=== PATIENT | female | born 1940 | race Caucasian/White ===

== ENCOUNTER 2017-05-26 09:25 | Inpatient (IN) | payer MEDICARE, OTHER ==
[2017-05-26] VITALS (9 sets, daily range): BP systolic 146–201; BP diastolic 79–119; PULSE 74–104; RESP 17–18; TEMP 98–98.4; O2SAT 93–97
[~2017-05-26] VITALS: Ht 167.6 cm; Wt 80.5 kg
[2017-05-26] MEDS: SODIUM CHLORIDE 0.9% FLUSH 10 ML FLUSH IVF PRN (09:44)
[2017-05-26 09:55] LABS: AUTOMATED NEUTROPHIL # 13.4 TH/MM3 (1.8-7.7); BASOPHIL # 0.2 TH/MM3 (0-0.2); BASOPHIL % 1.3 % (0.0-2.0); HEMATOCRIT 39.2 % (35.0-46.0); HEMO FLAGS DIFF FINAL; LYMPHOCYTE # 0.6 TH/MM3 (1.0-4.8); MEAN CORPUSCULAR HEMOGLOBIN 29.2 PG (27.0-34.0); MEAN CORPUSCULAR HGB CONC 33.6 % (32.0-36.0); NEUT % 88.7 % (16.0-70.0); PLATELET COUNT 387 TH/MM3 (150-450); RED BLOOD COUNT 4.51 MIL/MM3 (4.00-5.30); RED CELL DISTRIBUTION WIDTH 14.7 % (11.6-17.2); WHITE BLOOD COUNT 15.1 TH/MM3 (4.0-11.0)
--- NOTE | 2017-05-26 09:59 | PD ---
HPI Chief Complaint: Altered Mental Status Time Seen by Provider: 09:35 Travel History International Travel<30 days: No Contact w/Intl Traveler<30days: No Traveled to known affect area: No History of Present Illness HPI The patient is a 76-year-old female who presents to the emergency department from an assisted living facility by EMS after the patient was found on the floor. According to EMS the patient has fallen several times per the family's report of last several days. With the family arrived at her SNF today , the patient was found on the ground. EMS noted the patient had some bruising to the knees and right upper extremity and also appear to have an expressive aphasia. Upon arrival the patient does appear to have an expressive aphasia, is a somewhat limited historian and is unable to tell me the month, year, or relations manager. She tells me that her name is Samara. Apparently the patient was found on the ground, there is no known onset of symptoms. EMS did bring a medication list with her, there appears to be no anticoagulants. PFSH Past Medical History Cardiovascular Problems: Yes (HBP ) Diabetes: Yes Past Surgical History Surgical History: Unable to Obtain Social History Tobacco Use: No Allergies-Medications (Allergen,Severity, Reaction): Coded Allergies: Sulfa (Sulfonamide Antibiotics) (Unverified Allergy, Severe, HIVES, ) ITCHING Uncoded Allergies: SULFA-ITCHING (Allergy, Unknown, 06/08/03) Reported Meds & Prescriptions Reported Meds & Active Scripts Active Reported Lorazepam 1 Mg Tab 1 Mg PO BID PRN Norvasc (Amlodipine Besylate) 5 Mg Tab 5 Mg PO DAILY Atorvastatin (Atorvastatin Calcium) 20 Mg Tab 20 Mg PO HS Triamterene-Hydrochlorothiazide 37.5-25 Mg Cap 1 Cap PO DAILY Synthroid (Levothyroxine Sodium) 100 Mcg Tab 100 Mcg PO DAILY Glimepiride 1 Mg Tab 1 Mg PO DAILY Take with breakfast or first main meal Review of Systems ROS Limitations: Clinical Condition, Poor Historian Except as stated in HPI: all other systems reviewed are Neg Neurologic: Positive: Change in Mentation, Slurred Speech Physical Exam Narrative GENERAL: Awake, alert, 76 year-old female appears her stated age and is in no acute respiratory distress. SKIN: Focused skin assessment warm/dry. HEAD: Atraumatic. Normocephalic. EYES: Pupils equal and round. Pupils are 3 mm bilateral and reactive. EOMs appear intact. ENT: No nasal bleeding or discharge. Dry mucous membranes. NECK: Trachea midline. No JVD. CARDIOVASCULAR: Regular rate and rhythm. No murmur appreciated. RESPIRATORY: No accessory muscle use. Clear to auscultation. Breath sounds equal bilaterally. GASTROINTESTINAL: Abdomen soft, non-tender, nondistended. No rebound tenderness. MUSCULOSKELETAL: Ecchymosis noted over the anterior aspect of the knees bilaterally as well as over the medial right humeral area. NEUROLOGICAL: Awake and alert. Mild dysarthria, apparent expressive aphasia, tells me her name is Samara. He is unable to repeat phrases. No drift of the left upper extremity, is unable to keep her right arm. She is able to raise her left leg and right leg off of the bed. Is not oriented to person, month, or year. PSYCHIATRIC: Appropriate mood and affect; insight and judgment normal. Data Data Last Documented VS Vital Signs Date Time Temp Pulse Resp B/P (MAP) Pulse Ox O2 Delivery O2 Flow Rate FiO2 05/26/17 10:20 96 18 146/100 (115) 96 Room Air 05/26/17 09:29 98.2 Orders Orders Electrocardiogram (05/26/17 09:35) Prothrombin Time / Inr (Pt) (05/26/17 09:35) Act Partial Throm Time (Ptt) (05/26/17 09:35) Complete Blood Count With Diff (05/26/17 09:35) Comprehensive Metabolic Panel (05/26/17 09:35) Creatine Kinase (Cpk) (05/26/17 09:35) Troponin I (05/26/17 09:35) Urinalysis - C+S If Indicated (05/26/17 09:35) Ct Brain W/O Iv Contrast(Rout) (05/26/17 09:35) Chest, Single Ap (05/26/17 09:35) Ecg Monitoring (05/26/17 09:35) Iv Access Insert/Monitor (05/26/17 09:35) Oximetry (05/26/17 09:35) Sodium Chloride 0.9% Flush (Ns Flush) (05/26/17 09:45) Cath For Specimen (05/26/17 09:35) Knee, Ltd (1 Or 2vws) (05/26/17 ) Knee, Ltd (1 Or 2vws) (05/26/17 ) Humerus (Min 2vws) (05/26/17 ) Aspirin Supp (Aspirin Supp) (05/26/17 10:45) Admit Order (Ed Use Only) (05/26/17 10:55) Labs Laboratory Tests Test 05/26/17 09:40 05/26/17 10:15 White Blood Count 15.1 TH/MM3 Red Blood Count 4.51 MIL/MM3 Hemoglobin 13.2 GM/DL Hematocrit 39.2 % Mean Corpuscular Volume 87.0 FL Mean Corpuscular Hemoglobin 29.2 PG Mean Corpuscular Hemoglobin Concent 33.6 % Red Cell Distribution Width 14.7 % Platelet Count 387 TH/MM3 Mean Platelet Volume 7.5 FL Neutrophils (%) (Auto) 88.7 % Lymphocytes (%) (Auto) 4.0 % Monocytes (%) (Auto) 6.0 % Eosinophils (%) (Auto) 0.0 % Basophils (%) (Auto) 1.3 % Neutrophils # (Auto) 13.4 TH/MM3 Lymphocytes # (Auto) 0.6 TH/MM3 Monocytes # (Auto) 0.9 TH/MM3 Eosinophils # (Auto) 0.0 TH/MM3 Basophils # (Auto) 0.2 TH/MM3 CBC Comment DIFF FINAL Differential Comment Prothrombin Time 11.0 SEC Prothromb Time International Ratio 1.0 RATIO Activated Partial Thromboplast Time 25.0 SEC Blood Urea Nitrogen 11 MG/DL Creatinine 0.78 MG/DL Random Glucose 187 MG/DL Total Protein 7.7 GM/DL Albumin 3.7 GM/DL Calcium Level 8.9 MG/DL Alkaline Phosphatase 77 U/L Aspartate Amino Transf (AST/SGOT) 66 U/L Alanine Aminotransferase (ALT/SGPT) 49 U/L Total Bilirubin 0.9 MG/DL Sodium Level 131 MEQ/L Potassium Level 3.6 MEQ/L Chloride Level 91 MEQ/L Carbon Dioxide Level 26.9 MEQ/L Anion Gap 13 MEQ/L Estimat Glomerular Filtration Rate 72 ML/MIN Troponin I 0.03 NG/ML Urine Color YELLOW Urine Turbidity CLEAR Urine pH 7.0 Urine Specific [place] 1.013 Urine Protein 300 mg/dL Urine Glucose (UA) TRACE mg/dL Urine Ketones 80 mg/dL Urine Occult Blood MOD Urine Nitrite NEG Urine Bilirubin NEG Urine Urobilinogen LESS THAN 2.0 MG/DL Urine Leukocyte Esterase NEG Urine RBC 7 /hpf Urine WBC 3 /hpf Urine Squamous Epithelial Cells <1 /hpf Microscopic Urinalysis Comment CATH-CULT NOT IND MDM Medical Decision Making Medical Screen Exam Complete: Yes Emergency Medical Condition: Yes Medical Record Reviewed: Yes Interpretation(s) EKG reveals normal sinus rhythm with a rate in 94. Nonspecific T wave changes. Q wave noted in lead 3 and aVF. Laboratory Tests Test 05/26/17 09:40 05/26/17 10:15 White Blood Count 15.1 TH/MM3 Red Blood Count 4.51 MIL/MM3 Hemoglobin 13.2 GM/DL Hematocrit 39.2 % Mean Corpuscular Volume 87.0 FL Mean Corpuscular Hemoglobin 29.2 PG Mean Corpuscular Hemoglobin Concent 33.6 % Red Cell Distribution Width 14.7 % Platelet Count 387 TH/MM3 Mean Platelet Volume 7.5 FL Neutrophils (%) (Auto) 88.7 % Lymphocytes (%) (Auto) 4.0 % Monocytes (%) (Auto) 6.0 % Eosinophils (%) (Auto) 0.0 % Basophils (%) (Auto) 1.3 % Neutrophils # (Auto) 13.4 TH/MM3 Lymphocytes # (Auto) 0.6 TH/MM3 Monocytes # (Auto) 0.9 TH/MM3 Eosinophils # (Auto) 0.0 TH/MM3 Basophils # (Auto) 0.2 TH/MM3 CBC Comment DIFF FINAL Differential Comment Prothrombin Time 11.0 SEC Prothromb Time International Ratio 1.0 RATIO Activated Partial Thromboplast Time 25.0 SEC Blood Urea Nitrogen 11 MG/DL Creatinine 0.78 MG/DL Random Glucose 187 MG/DL Total Protein 7.7 GM/DL Albumin 3.7 GM/DL Calcium Level 8.9 MG/DL Alkaline Phosphatase 77 U/L Aspartate Amino Transf (AST/SGOT) 66 U/L Alanine Aminotransferase (ALT/SGPT) 49 U/L Total Bilirubin 0.9 MG/DL Sodium Level 131 MEQ/L Potassium Level 3.6 MEQ/L Chloride Level 91 MEQ/L Carbon Dioxide Level 26.9 MEQ/L Anion Gap 13 MEQ/L Estimat Glomerular Filtration Rate 72 ML/MIN Troponin I 0.03 NG/ML Urine Color YELLOW Urine Turbidity CLEAR Urine pH 7.0 Urine Specific [place] 1.013 Urine Protein 300 mg/dL Urine Glucose (UA) TRACE mg/dL Urine Ketones 80 mg/dL Urine Occult Blood MOD Urine Nitrite NEG Urine Bilirubin NEG Urine Urobilinogen LESS THAN 2.0 MG/DL Urine Leukocyte Esterase NEG Urine RBC 7 /hpf Urine WBC 3 /hpf Urine Squamous Epithelial Cells <1 /hpf Microscopic Urinalysis Comment CATH-CULT NOT IND Last Impressions Head CT 05/26/1735 Signed Impressions: Service Date/Time: Friday, May 26, 2017 10:04 - CONCLUSION: No acute disease. Hermelinda Edwards MD Chest X-Ray 05/26/17 0935 Signed Impressions: Service Date/Time: Friday, May 26, 2017 09:51 - CONCLUSION: Significant hypoinflation of the lungs. The enlargement of cardiac silhouette and prominence of the pulmonary vasculature may be secondary to portable technique versus congestive heart failure and pulmonary edema. Recommend upright PA and lateral views when clinically able. Hermelinda Edwards MD Knee X-Ray 05/26/17 0000 Signed Impressions: Service Date/Time: Friday, May 26, 2017 09:56 - CONCLUSION: Focal soft tissue overlying the patella which may represent an area of focal or situs or hematoma. Hermelinda Edwards MD Knee X-Ray 05/26/17 0000 Signed Impressions: Service Date/Time: Friday, May 26, 2017 09:55 - CONCLUSION: Degenerative changes along the patella. Otherwise the exam.. Hermelinda Edwards MD Humerus X-Ray 05/26/17 0000 Signed Impressions: Service Date/Time: Friday, May 26, 2017 09:52 - CONCLUSION: Unremarkable examination of the right humerus. Hermelinda Edwards MD Differential Diagnosis Differential diagnosis includes CVA, intracranial hemorrhage, subarachnoid hemorrhage, delirium, UTI, pneumonia, hyponatremia, closed head injury. Narrative Course IV was established, labs were drawn and sent, and the patient was placed on cardiac telemetry monitoring and continuous pulse oximetry monitoring. Stat CT of the brain was obtained. EKG was ordered and interpreted. Chest x-ray was obtained. CT of the brain is unremarkable. X-rays reveal no acute fractures. I had a discussion with family at bedside who state that the patient's speech was normal yesterday, the patient was last seen normal at 4 PM. Therefore, the patient is not a TPA candidate. They do notice that the patient's speech is significantly different today, the patient appears to have expressive aphasia and new onset weakness of the right upper extremity consistent with a CVA, most likely the left temporal parietal region. As CT was negative, the patient was administered aspirin rectally until she is able to have a speech evaluation and swallow study. They state that the patient's primary physician is Dr. Brett Morgan and that the patient has [facility], therefore, [facility] was paged for admission. Physician Communication Physician Communication [facility] was paged for admission. I discussed the patient Dr. Wilkins who agrees with admission. Diagnosis Primary Impression: CVA (cerebral vascular accident) Qualified Codes: I63.9 - Cerebral infarction, unspecified Additional Impression: Expressive dysphasia Admitting Information Admitting Physician Requests: Admit Condition: Stable Wero Payne MD May 26, 2017 09:59
--- NOTE | 2017-05-26 10:21 | RADRPT ---
EXAM DATE/TIME: 05/26/2017 09:51 [facility] COMPARISON: No previous studies available for comparison. INDICATIONS : Pain from fall. MEDICAL HISTORY : None. SURGICAL HISTORY : None. ENCOUNTER: Initial ACUITY: 1 day PAIN SCORE: 10 LOCATION: Bilateral chest FINDINGS: The lungs appear moderately hyperinflated. The heart size is mildly enlarged which may be secondary t o portable technique and hypoinflation. There is indistinctness of the pulmonary vasculature. Osseous structures are unremarkable. CONCLUSION: Significant hypoinflation of the lungs. The enlargement of cardiac silhouette and pro minence of the pulmonary vasculature may be secondary to portable technique versus congestive heart f ailure and pulmonary edema. Recommend upright PA and lateral views when clinically able. Hermelinda Edwards MD on May 26, 2017 at 10:18 Board Certified Radiologist. This report was verified electronically.
--- NOTE | 2017-05-26 10:22 | RADRPT ---
EXAM DATE/TIME: 05/26/2017 10:04 [facility] COMPARISON: No previous studies available for comparison. INDICATIONS : Altered mental status, multiple falls. RADIATION DOSE: 37.27 CTDIvol (mGy) ; Patient motion MEDICAL HISTORY : Hypertension. diabetes SURGICAL HISTORY : None. ENCOUNTER: Initial ACUITY: 1 day PAIN SCALE: 0/10 LOCATION: Bilateral head TECHNIQUE: Multiple contiguous axial images were obtained of the head. Using automated exposure control and adj ustment of the mA and/or kV according to patient size, radiation dose was kept as low as reasonably a chievable to obtain optimal diagnostic quality images. DICOM format image data is available electro nically for review and comparison. FINDINGS: CEREBRUM: The ventricles are normal for age. No evidence of midline shift, mass lesion, hemorrhage or acute in farction. There is a focal 6 mm well-circumscribed hypodensity involving the white matter of the rig ht frontal lobe which may represent an old lacunar infarct versus prominent perivascular space. No ex tra-axial fluid collections are seen. POSTERIOR FOSSA: The cerebellum and brainstem are intact. The 4th ventricle is midline. The cerebellopontine angle i s unremarkable. EXTRACRANIAL: The visualized portion of the orbits is intact. SKULL: The calvaria is intact. No evidence of skull fracture. CONCLUSION: No acute disease. Hermelinda Edwards MD on May 26, 2017 at 10:20 Board Certified Radiologist. This report was verified electronically.
--- NOTE | 2017-05-26 10:23 | RADRPT ---
EXAM DATE/TIME: 05/26/2017 09:52 [facility] COMPARISON: No previous studies available for comparison. INDICATIONS : Pain from fall. MEDICAL HISTORY : None. SURGICAL HISTORY : None. ENCOUNTER: Initial ACUITY: 1 day PAIN SCORE: 1/10 LOCATION: Right humerus. FINDINGS: Two view examination of the right humerus demonstrates no evidence of fracture or dislocation. Bony mineralization is normal. The soft tissue structures are intact. CONCLUSION: Unremarkable examination of the right humerus. Hermelinda Edwards MD on May 26, 2017 at 10:21 Board Certified Radiologist. This report was verified electronically.
--- NOTE | 2017-05-26 10:24 | RADRPT ---
EXAM DATE/TIME: 05/26/2017 09:55 [facility] COMPARISON: No previous studies available for comparison. INDICATIONS : Pain from fall. MEDICAL HISTORY : None. SURGICAL HISTORY : None. ENCOUNTER: Initial ACUITY: 1 day PAIN SCORE: 10 LOCATION: Right knee. FINDINGS: Two view examination of the right knee demonstrates no evidence of fracture or dislocation. Patellar enthesophytes are noted. Bony mineralization is normal. The suprapatellar soft tissues have a normal configuration. CONCLUSION: Degenerative changes along the patella. Otherwise the exam.. Hermelinda Edwards MD on May 26, 2017 at 10:21 Board Certified Radiologist. This report was verified electronically.
--- NOTE | 2017-05-26 10:24 | RADRPT ---
EXAM DATE/TIME: 05/26/2017 09:56 [facility] COMPARISON: No previous studies available for comparison. INDICATIONS : Pain from fall. MEDICAL HISTORY : None. SURGICAL HISTORY : None. ENCOUNTER: Initial ACUITY: 1 day PAIN SCORE: 10 LOCATION: Left knee. FINDINGS: Two view examination of the left knee demonstrates no evidence of fracture or dislocation. Patellar enthesophytes. Focal soft tissue edema overlying the patella. Bony mineralization is normal. The sup rapatellar soft tissues have a normal configuration. CONCLUSION: Focal soft tissue overlying the patella which may represent an area of focal or situs or hematoma. Hermelinda Edwards MD on May 26, 2017 at 10:22 Board Certified Radiologist. This report was verified electronically.
[2017-05-26] MEDS ORDERED: LORA1TAB12 PO (10:39)
[2017-05-26] MEDS ORDERED: ATOR20TA15 PO (10:39)
[2017-05-26] MEDS ORDERED: AMLO5 PO (10:39)
[2017-05-26] MEDS ORDERED: TRIA37.53 PO (10:39)
[2017-05-26] MEDS ORDERED: GLIM1TAB PO (10:39)
[2017-05-26] MEDS ORDERED: LEVO.1 PO (10:39)
[2017-05-26 10:43] LABS: ANION GAP 13 MEQ/L (5-15); AST (GOT) 66 U/L (15-37); BICARBONATE 26.9 MEQ/L (21.0-32.0); BLOOD UREA NITROGEN 11 MG/DL (7-18); CHLORIDE 91 MEQ/L (98-107); GLOMERULAR FILTRATION RATE 72 ML/MIN (>89); SODIUM (NA) 131 MEQ/L (136-145)
[2017-05-26 10:44] LABS: POTASSIUM 3.6 MEQ/L (3.5-5.1)
[2017-05-26] MEDS ORDERED: ASPIRIN 300 MG SUPP RECTAL ONE (10:45)
[2017-05-26 10:46] LABS: BLOOD, URINE MOD (NEG); COMMENT (UR) CATH-CULT NOT IND; CULTURE IF INDICATED CATH CULTURE NOT IND; GLUCOSE,URINE TRACE mg/dL (NEG); KETONE, URINE 80 mg/dL (NEG); NITRITE,URINE NEG (NEG); SQUAMOUS EPITHELIAL CELL URINE <1 /hpf (0-5); URINE COLOR YELLOW (YELLW/STRAW)
[2017-05-26 10:48] LABS: ALKALINE PHOSPHATASE 77 U/L (45-117); ALT (GPT) 49 U/L (10-53); TOTAL BILIRUBIN ADULT 0.9 MG/DL (0.2-1.0)
[2017-05-26 10:59] LABS: CREATINE KINASE 2350 U/L (26-192)
[2017-05-26 11:14] LABS: CKMB 16.8 NG/ML (0.5-3.6)
[2017-05-26] MEDS: SODIUM CHLOR 0.9% 1000 ML INJ 1,000 ML IV SCH (13:35)
--- NOTE | 2017-05-26 15:36 | HHI.HP ---
HPI Service [facility] Hospitalists Primary Care Physician Brett Morgan M.D. Admission Diagnosis CVA with expressive dysarthria, multiple hematomas Chief Complaint: found down Travel History International Travel<30 Days: No Contact w/Intl Traveler <30 Da: No Traveled to Known Affected Are: No History of Present Illness Pt is 76 yo with dm 2, htn, hyperlipidemia who presents after being found down. Her daughter and grand daughter are here to help with history. Pt lives in [place] and is described to be very funtional. no assistive devices. She drives a car and is able to ambulate normally to grocery store. last weekend she fell and was seen by her pcp and had xray on her leg and arm by pcp per family. Then2 days ago she had another fall and daughter spent the night. But last night family called around 10pm and no answer. When they arrived this AM she was found lying on the floor. The helped her to a chair and when she arrived her pt had expressive aphasia and rue weakness. CT head negative. No tpa candidate. No afib hx per family. Review of Systems Other multiple falls recently expressive aphasia. Past Family Social History Past Medical History htn dm 2 hypothyroidism hernia repair hysterectomy cholecystectomy Reported Medications Lorazepam 1 Mg Tab 1 Mg PO BID PRN Norvasc (Amlodipine Besylate) 5 Mg Tab 5 Mg PO DAILY Atorvastatin (Atorvastatin Calcium) 20 Mg Tab 20 Mg PO HS Triamterene-Hydrochlorothiazide 37.5-25 Mg Cap 1 Cap PO DAILY Synthroid (Levothyroxine Sodium) 100 Mcg Tab 100 Mcg PO DAILY Glimepiride 1 Mg Tab 1 Mg bid Allergies: Coded Allergies: Sulfa (Sulfonamide Antibiotics) (Unverified Allergy, Severe, HIVES, ) ITCHING Uncoded Allergies: SULFA-ITCHING (Allergy, Unknown, 06/08/03) Family History nc Social History no etoh/tob Physical Exam Vital Signs expressive aphasia rue weakness. unable to lift arm above head heart reg lung cta abd snt ext no edema bruising over upper ext's and knee Vital Signs Date Time Temp Pulse Resp B/P (MAP) Pulse Ox O2 Delivery O2 Flow Rate FiO2 05/26/17 13:45 98.0 89 16 161/81 (107) 97 05/26/17 11:56 98.1 94 17 172/79 (110) 97 Room Air 05/26/17 10:20 96 18 146/100 (115) 96 Room Air 05/26/17 09:44 18 95 Room Air 05/26/17 09:30 104 18 95 Room Air 05/26/17 09:29 98.2 104 18 201/119 (146) 95 Laboratory Laboratory Tests Test 05/26/17 09:40 05/26/17 10:15 White Blood Count 15.1 Red Blood Count 4.51 Hemoglobin 13.2 Hematocrit 39.2 Mean Corpuscular Volume 87.0 Mean Corpuscular Hemoglobin 29.2 Mean Corpuscular Hemoglobin Concent 33.6 Red Cell Distribution Width 14.7 Platelet Count 387 Mean Platelet Volume 7.5 Neutrophils (%) (Auto) 88.7 Lymphocytes (%) (Auto) 4.0 Monocytes (%) (Auto) 6.0 Eosinophils (%) (Auto) 0.0 Basophils (%) (Auto) 1.3 Neutrophils # (Auto) 13.4 Lymphocytes # (Auto) 0.6 Monocytes # (Auto) 0.9 Eosinophils # (Auto) 0.0 Basophils # (Auto) 0.2 CBC Comment DIFF FINAL Differential Comment Prothrombin Time 11.0 Prothromb Time International Ratio 1.0 Activated Partial Thromboplast Time 25.0 Blood Urea Nitrogen 11 Creatinine 0.78 Random Glucose 187 Total Protein 7.7 Albumin 3.7 Calcium Level 8.9 Alkaline Phosphatase 77 Aspartate Amino Transf (AST/SGOT) 66 Alanine Aminotransferase (ALT/SGPT) 49 Total Bilirubin 0.9 Sodium Level 131 Potassium Level 3.6 Chloride Level 91 Carbon Dioxide Level 26.9 Anion Gap 13 Estimat Glomerular Filtration Rate 72 Total Creatine Kinase 2350 Creatine Kinase MB 16.8 Creatine Kinase MB % 0.7 Troponin I 0.03 Urine Color YELLOW Urine Turbidity CLEAR Urine pH 7.0 Urine Specific [place] 1.013 Urine Protein 300 Urine Glucose (UA) TRACE Urine Ketones 80 Urine Occult Blood MOD Urine Nitrite NEG Urine Bilirubin NEG Urine Urobilinogen LESS THAN 2.0 Urine Leukocyte Esterase NEG Urine RBC 7 Urine WBC 3 Urine Squamous Epithelial Cells <1 Microscopic Urinalysis Comment CATH-CULT NOT IND Result Diagram: 05/26/1740 05/26/1740 Caprini VTE Risk Assessment Caprini VTE Risk Assessment: Mod/High Risk (score >= 2) Caprini Risk Assessment Model Point Value = 1 Point Value = 2 Point Value = 3 Point Value = 5 Age 41-60 Minor surgery BMI > 25 kg/m2 Swollen legs Varicose veins or History of unexplained or recurrent spontaneous Oral contraceptives or hormone replacement Sepsis (< 1 month) Serious lung disease, including pneumonia (< 1 month) Abnormal pulmonary function Acute myocardial infarction Congestive heart failure (< 1 month) History of inflammatory bowel disease Medical patient at bed rest Age 61-74 Arthroscopic surgery Major open surgery (> 45 min) Laparoscopic surgery (> 45 min) Malignancy Confined to bed (> 72 hours) Immobilizing plaster cast Central venous access Age >= 75 History of VTE Family history of VTE Factor V Leiden Prothrombin [id number] Lupus anticoagulant Anticardiolipin antibodies Elevated serum homocysteine Heparin-induced thrombocytopenia Other congenital or acquired thrombophilia Stroke (< 1 month) Elective arthroplasty Hip, pelvis, or leg fracture Acute spinal cord injury (< 1 month) Prophylaxis Regimen Total Risk Factor Score Risk Level Prophylaxis Regimen 0-1 Low Early ambulation 2 Moderate Order ONE of the following: *Sequential Compression Device (SCD) *Heparin 5000 units SQ BID 3-4 Higher Order ONE of the following medications: *Heparin 5000 units SQ TID *Enoxaparin/Lovenox 40 mg SQ daily (WT < 150 kg, CrCl > 30 mL/min) *Enoxaparin/Lovenox 30 mg SQ daily (WT < 150 kg, CrCl > 10-29 mL/min) *Enoxaparin/Lovenox 30 mg SQ BID (WT < 150 kg, CrCl > 30 mL/min) AND/OR *Sequential Compression Device (SCD) 5 or more Highest Order ONE of the following medications: *Heparin 5000 units SQ TID (Preferred with Epidurals) *Enoxaparin/Lovenox 40 mg SQ daily (WT < 150 kg, CrCl > 30 mL/min) *Enoxaparin/Lovenox 30 mg SQ daily (WT < 150 kg, CrCl > 10-29 mL/min) *Enoxaparin/Lovenox 30 mg SQ BID (WT < 150 kg, CrCl > 30 mL/min) AND *Sequential Compression Device (SCD) Assessment and Plan Problem List: (1) CVA (cerebral vascular accident) ICD Codes: I63.9 - Cerebral infarction, unspecified Status: Acute Plan: Pt is 76 yo with dm2 and htn presents with expressive aphasia/rue weakness acute cva. probably left mca. rhabdomyolysis from falls/lying on floor mild hyponatremia mild dehydration. multiple contusions of arms/legs telemetry/echo to eval for embolic source FLP and [id number] bmp in AM hob flat permissive htn asa daily mri/mra brain., carotid u/s NS ivf PT/OT/ST consult pt was not a tpa candidate. hold bp meds and oha tonight. reassess tomorro ssi. swallow eval. per nursing passed bedside swallow (2) Rhabdomyolysis ICD Codes: M62.82 - Rhabdomyolysis Status: Acute (3) Hyponatremia ICD Codes: E87.1 - Hypo-osmolality and hyponatremia Status: Acute (4) Hypothyroid ICD Codes: E03.9 - Hypothyroidism, unspecified Status: Chronic (5) HTN (hypertension) ICD Codes: I10 - Essential (primary) hypertension Status: Chronic (6) DM type 2 (diabetes mellitus, type 2) ICD Codes: E11.9 - Type 2 diabetes mellitus without complications Status: Chronic Physician Certification 2 Midnight Certification Type: Admission for Inpatient Services Order for Inpatient Services 3The services are ordered in accordance with Medicare regulations or non- Medicare payer requirements, as applicable. In the case of services not specified as inpatient-only, they are appropriately provided as inpatient services in accordance with the 2-midnight benchmark. Estimated LOS (days): 3 3 days is the estimated time the patient will need to remain in the hospital, assuming treatment plan goals are met and no additional complications. Post-Hospital Plan: Not yet determined Problem Qualifiers (1) CVA (cerebral vascular accident): Qualified Codes: I63.9 - Cerebral infarction, unspecified Claus Wilkins MD May 26, 2017 15:36
[2017-05-26] MEDS ORDERED: ENALAPRILAT 1.25 MG/ML VIAL IV PUSH PRN (15:45)
[2017-05-26] MEDS: INSULIN ASPART SUPPLEMENTAL SCALE SQ SCH ×2 (15:58→21:00)
[2017-05-26] MEDS ORDERED: DEXTROSE 50% IN WATER 50 ML VIAL(D50) IV PUSH PRN (16:00)
[2017-05-26] MEDS ORDERED: GLUCAGON 1 MG/ML VIAL OTHER PRN (16:00)
--- NOTE | 2017-05-26 18:24 | RADRPT ---
EXAM DATE/TIME: 05/26/2017 17:43 [facility] COMPARISON: No previous studies available for comparison. INDICATIONS : Cerebrovascular accident. MEDICAL HISTORY : Hypertension. Arthritis. Diabetes. SURGICAL HISTORY : Cholecystectomy. Hysterectomy. Hernia removal. ENCOUNTER: Initial ACUITY: 1 day PAIN SCORE: 0/10 LOCATION: Bilateral neck PEAK SYSTOLIC VELOCITIES (cm/sec): ICA/CCA RATIO: Right: 1.7 Left: 1.5 ICA: Right: 119.1 Left: 136.9 CCA: Right: 68.3 Left: 89.8 ECA: Right: 104.9 Left: 77.9 VERTEBRAL: Right: 35.4 antegrade Left: 51.6 antegrade Elevated flow velocities and ICA/CCA ratios have been found to correlate with increased degrees of vessel stenosis, calculated as percentage of diameter relative to a normal segment of distal ICA/CCA FINDINGS: RIGHT CAROTID: No significant stenosis is visualized. The waveforms are within normal limits. Minimal atherosclerot ic plaque is noted. LEFT CAROTID: No significant stenosis is visualized. The waveforms are within normal limits. Minimal atherosclerot ic plaque is noted VERTEBRAL ARTERIES: Antegrade flow is seen in both vertebral arteries. MISCELLANEOUS: None. CONCLUSION: No hemodynamically significant stenosis. Kevin Jay MD on May 26, 2017 at 18:18 Board Certified Radiologist. This report was verified electronically.
--- NOTE | 2017-05-26 19:44 | RADRPT ---
EXAM DATE/TIME: 05/26/2017 19:02 [facility] COMPARISON: No previous studies available for comparison. INDICATIONS : Confusion. MEDICAL HISTORY : Hypertension. Diabetes mellitus type 2. SURGICAL HISTORY : Umbilical hernia repair. Cholecystectomy. Hysterectomy. ENCOUNTER: Initial ACUITY: 1 day PAIN SCORE: 0/10 LOCATION: cranial TECHNIQUE: Multiplanar, multisequence MRI of the brain was performed without contrast. FINDINGS: CEREBRUM: The ventricles are normal for age. No evidence of midline shift, mass lesion, hemorrhage or acute in farction. No extraaxial fluid collections are seen. The pituitary gland and suprasellar cistern are normal in configuration. WHITE MATTER: Mild periventricular white matter small vessel ischemic changes are noted. POSTERIOR FOSSA: The cerebellum and brainstem are intact. The 4th ventricle is midline. The cerebellopontine angle is unremarkable. The cerebellar tonsils are normal in position. DIFFUSION IMAGING: No focal areas of restricted diffusion are seen. No evidence of acute infarction. EXTRACRANIAL: The visualized portions of the orbits and paranasal sinuses are unremarkable. CONCLUSION: 1. Mild periventricular white matter small vessel ischemic changes bilaterally. 2. No acute infarct, acute hemorrhage, mass effect, or extra-axial fluid collection. Kevin Jay MD on May 26, 2017 at 19:40 Board Certified Radiologist. This report was verified electronically.
--- NOTE | 2017-05-26 20:15 | RADRPT ---
EXAM DATE/TIME: 05/26/2017 19:02 [facility] COMPARISON: MRI BRAIN W/O CONTRAST, May 26, 2017, 19:02. CT BRAIN W/O CONTRAST, May 26, 2017, 10:04. INDICATIONS : Confusion. MEDICAL HISTORY : Hypertension. Diabetes mellitus type 2. SURGICAL HISTORY : Umbilical hernia repair. Cholecystectomy. Hysterectomy. ENCOUNTER: Initial ACUITY: 1 day PAIN SCORE: 0/10 LOCATION: Cranial Please note a normal MRA of the brain does not entirely exclude the possibility of a small aneurysm, nor the possibility of distal intracranial vessel disease. TECHNIQUE: 3D time of flight MRA was performed. Source images, multiplanar STS MIP, and 3D volume MIP reconstru ctions were reviewed. FINDINGS: The examination is markedly limited due to patient motion during scanning. There is poor filling of the distal branches of the right middle cerebral artery which raises the possibility of severe stenos is of the right middle cerebral artery. No definite acute infarct is identified on the accompanying MRI done the same day. The left middle cerebral artery is patent. The anterior cerebral arteries ar e patent bilaterally. The upper cervical, petrous, cavernous and supraclinoid internal carotid arter ies are patent without significant stenosis or occlusion. The basilar artery is patent without signi ficant stenosis or occlusion. There is poor visualization of the posterior cerebral arteries althoug h they do appear to be patent. There appears to be a patent left posterior communicating artery fill ing the left posterior cerebral artery. CONCLUSION: 1. Limited examination due to patient motion. 2. Poor visualization of the distal branches of the right middle cerebral artery raising the possibil ity of severe stenosis of this vessel although no acute infarct is identified on the accompanying MRI of the brain done the same day. Clinical correlation is recommended. Kevin Jay MD on May 26, 2017 at 19:42 Board Certified Radiologist. This report was verified electronically.
[2017-05-26] MEDS: ATORVASTATIN 40 MG TAB PO SCH (21:38)
[2017-05-26] MEDS: LORazepam 1 MG TAB PO PRN (21:38)
[2017-05-27] VITALS (7 sets, daily range): BP systolic 177–209; BP diastolic 80–100; PULSE 68–91; RESP 18–20; TEMP 97.3–98.5; O2SAT 94–96
[2017-05-27] MEDS: SODIUM CHLOR 0.9% 1000 ML INJ 1,000 ML IV SCH ×2 (03:45→16:51)
[2017-05-27] MEDS: LEVOTHYROXINE SODIUM 100 MCG TAB PO SCH (05:48)
[2017-05-27] MEDS: INSULIN ASPART SUPPLEMENTAL SCALE SQ SCH ×4 (06:39→21:00)
[2017-05-27 07:30] LABS: AUTOMATED NEUTROPHIL # 7.4 TH/MM3 (1.8-7.7); BASOPHIL # 0.1 TH/MM3 (0-0.2); BASOPHIL % 0.6 % (0.0-2.0); EOSINOPHIL % 0.3 % (0.0-4.0); HEMATOCRIT 36.8 % (35.0-46.0); HEMO FLAGS DIFF FINAL; LYMPHOCYTE # 1.2 TH/MM3 (1.0-4.8); MEAN CELL VOLUME 87.3 FL (80.0-100.0); MEAN CORPUSCULAR HEMOGLOBIN 29.8 PG (27.0-34.0); MEAN CORPUSCULAR HGB CONC 34.2 % (32.0-36.0); MONO % 8.2 % (0.0-8.0); NEUT % 77.9 % (16.0-70.0); PLATELET COUNT 308 TH/MM3 (150-450); RED BLOOD COUNT 4.21 MIL/MM3 (4.00-5.30); RED CELL DISTRIBUTION WIDTH 14.8 % (11.6-17.2); WHITE BLOOD COUNT 9.5 TH/MM3 (4.0-11.0)
[2017-05-27 08:35] LABS: ANION GAP 11 MEQ/L (5-15); BICARBONATE 25.6 MEQ/L (21.0-32.0); BLOOD UREA NITROGEN 8 MG/DL (7-18); CHLORIDE 97 MEQ/L (98-107); CREATINE KINASE 2754 U/L (26-192); GLOMERULAR FILTRATION RATE 117 ML/MIN (>89); HDL CHOLESTEROL 42.1 MG/DL (40.0-60.0); LDL CHOLESTEROL 72 MG/DL (0-99); SODIUM (NA) 134 MEQ/L (136-145)
[2017-05-27 08:37] LABS: CKMB 10.2 NG/ML (0.5-3.6)
[2017-05-27 08:39] LABS: POTASSIUM 2.8 MEQ/L (3.5-5.1)
[2017-05-27] MEDS: ASPIRIN 81 MG CHEW TAB CHEW SCH (09:18)
[2017-05-27] MEDS: SODIUM CHLORIDE 0.9% FLUSH 10 ML FLUSH IVF PRN (09:19)
[2017-05-27] MEDS ORDERED: ACETAMINOPHEN/HYDROcodone 325 MG/5 MG TAB PO PRN (12:30)
[2017-05-27] MEDS: POTASSIUM CHLORIDE 20 MEQ CONTROLLED RELEASE TAB PO SCH ×2 (13:54→17:00)
--- NOTE | 2017-05-27 14:27 | EKG ---
Date Performed: 05/26/2017 Time Performed: 10:18:57 PTAGE: 76 years EKG: Sinus rhythm POSSIBLE LEFT ATRIAL ENLARGEMENT BORDERLINE LEFT AXIS DEVIATION NONSPECIFIC ST & T-WAVE ABNORMALITY BORDERLINE ECG INTERPRETATION BASED ON A DEFAULT AGE OF 40 YEARS PREVIOUS TRACING : 04/28/2002 12.01 Compared to prior tracing no significant change DOCTOR: Clive Minor Interpretating Date/Time 05/27/2017 14:25:42
--- NOTE | 2017-05-27 14:58 | HHI.PR ---
Subjective Remarks Pts daughter reports that the pt is still somewhat confused about certain things She is having trouble with lifting the right arm but has good size worker strength Family reports that the pt has had several episodes of falling as far back as February 2017 Objective Vitals Vital Signs Date Time Temp Pulse Resp B/P (MAP) Pulse Ox O2 Delivery O2 Flow Rate FiO2 05/27/17 12:24 98.1 73 20 193/89 (123) 95 05/27/17 08:08 97.3 71 20 182/93 (122) 94 05/27/17 04:00 98.2 68 20 177/81 (113) 96 05/27/17 00:00 98.5 71 20 177/82 (113) 94 05/26/17 23:00 74 05/26/17 20:10 98.3 74 18 186/86 (119) 95 05/26/17 20:00 74 05/26/17 16:00 98.4 92 18 197/95 (129) 93 Result Diagram: 05/27/17 0650 05/27/17 0650 Other Results Laboratory Tests Test 05/26/17 09:40 05/26/17 10:15 05/27/17 06:50 White Blood Count 15.1 TH/MM3 9.5 TH/MM3 Red Blood Count 4.51 MIL/MM3 4.21 MIL/MM3 Hemoglobin 13.2 GM/DL 12.6 GM/DL Hematocrit 39.2 % 36.8 % Mean Corpuscular Volume 87.0 FL 87.3 FL Mean Corpuscular Hemoglobin 29.2 PG 29.8 PG Mean Corpuscular Hemoglobin Concent 33.6 % 34.2 % Red Cell Distribution Width 14.7 % 14.8 % Platelet Count 387 TH/MM3 308 TH/MM3 Mean Platelet Volume 7.5 FL 7.8 FL Neutrophils (%) (Auto) 88.7 % 77.9 % Lymphocytes (%) (Auto) 4.0 % 13.0 % Monocytes (%) (Auto) 6.0 % 8.2 % Eosinophils (%) (Auto) 0.0 % 0.3 % Basophils (%) (Auto) 1.3 % 0.6 % Neutrophils # (Auto) 13.4 TH/MM3 7.4 TH/MM3 Lymphocytes # (Auto) 0.6 TH/MM3 1.2 TH/MM3 Monocytes # (Auto) 0.9 TH/MM3 0.8 TH/MM3 Eosinophils # (Auto) 0.0 TH/MM3 0.0 TH/MM3 Basophils # (Auto) 0.2 TH/MM3 0.1 TH/MM3 CBC Comment DIFF FINAL DIFF FINAL Differential Comment Prothrombin Time 11.0 SEC Prothromb Time International Ratio 1.0 RATIO Activated Partial Thromboplast Time 25.0 SEC Blood Urea Nitrogen 11 MG/DL 8 MG/DL Creatinine 0.78 MG/DL 0.51 MG/DL Random Glucose 187 MG/DL 163 MG/DL Total Protein 7.7 GM/DL Albumin 3.7 GM/DL Calcium Level 8.9 MG/DL 8.2 MG/DL Alkaline Phosphatase 77 U/L Aspartate Amino Transf (AST/SGOT) 66 U/L Alanine Aminotransferase (ALT/SGPT) 49 U/L Total Bilirubin 0.9 MG/DL Sodium Level 131 MEQ/L 134 MEQ/L Potassium Level 3.6 MEQ/L 2.8 MEQ/L Chloride Level 91 MEQ/L 97 MEQ/L Carbon Dioxide Level 26.9 MEQ/L 25.6 MEQ/L Anion Gap 13 MEQ/L 11 MEQ/L Estimat Glomerular Filtration Rate 72 ML/MIN 117 ML/MIN Total Creatine Kinase 2350 U/L 2754 U/L Creatine Kinase MB 16.8 NG/ML 10.2 NG/ML Creatine Kinase MB % 0.7 % 0.4 % Troponin I 0.03 NG/ML Urine Color YELLOW Urine Turbidity CLEAR Urine pH 7.0 Urine Specific [place] 1.013 Urine Protein 300 mg/dL Urine Glucose (UA) TRACE mg/dL Urine Ketones 80 mg/dL Urine Occult Blood MOD Urine Nitrite NEG Urine Bilirubin NEG Urine Urobilinogen LESS THAN 2.0 MG/DL Urine Leukocyte Esterase NEG Urine RBC 7 /hpf Urine WBC 3 /hpf Urine Squamous Epithelial Cells <1 /hpf Microscopic Urinalysis Comment CATH-CULT NOT IND Triglycerides Level 162 MG/DL Cholesterol Level 146 MG/DL LDL Cholesterol 72 MG/DL HDL Cholesterol 42.1 MG/DL Cholesterol/HDL Ratio 3.46 RATIO Imaging Last Impressions Head CT 05/26/1735 Signed Impressions: Service Date/Time: Friday, May 26, 2017 10:04 - CONCLUSION: No acute disease. Hermelinda Edwards MD Chest X-Ray 05/26/1735 Signed Impressions: Service Date/Time: Friday, May 26, 2017 09:51 - CONCLUSION: Significant hypoinflation of the lungs. The enlargement of cardiac silhouette and prominence of the pulmonary vasculature may be secondary to portable technique versus congestive heart failure and pulmonary edema. Recommend upright PA and lateral views when clinically able. Hermelinda Edwards MD Knee X-Ray 05/26/17 Signed Impressions: Service Date/Time: Friday, May 26, 2017 09:56 - CONCLUSION: Focal soft tissue overlying the patella which may represent an area of focal or situs or hematoma. Hermelinda Edwards MD Humerus X-Ray 05/26/17 Signed Impressions: Service Date/Time: Friday, May 26, 2017 09:52 - CONCLUSION: Unremarkable examination of the right humerus. Hermelinda Edwards MD Head Magnetic Resonance Angiography 05/26/17 Signed Impressions: Service Date/Time: Friday, May 26, 2017 19:02 - CONCLUSION: 1. Limited examination due to patient motion. 2. Poor visualization of the distal branches of the right middle cerebral artery raising the possibility of severe stenosis of this vessel although no acute infarct is identified on the accompanying MRI of the brain done the same day. Clinical correlation is recommended. Kevin Jay MD Carotid Artery Ultrasound 05/26/17 Signed Impressions: Service Date/Time: Friday, May 26, 2017 17:43 - CONCLUSION: No hemodynamically significant stenosis. Kevin Jay MD Brain MRI 05/26/17 Signed Impressions: Service Date/Time: Friday, May 26, 2017 19:02 - CONCLUSION: 1. Mild periventricular white matter small vessel ischemic changes bilaterally. 2. No acute infarct, acute hemorrhage, mass effect, or extra-axial fluid collection. Kevin Jay MD Objective Remarks General: NAD, Awake, alert Chest: CTA Cardiac: Regular Abd: +BS, soft ND/NT Ext: Multiple areas of ecchymoses on the UE and LE Neuro: Speech normal, equal size worker strength in the hands, pt has difficulty with abducting or lifting the RUE A/P Problem List: (1) CVA (cerebral vascular accident) ICD Codes: I63.9 - Cerebral infarction, unspecified Status: Acute Plan: - Pt is 76 yo with DM-2 and HTN who presented to the ED with expressive aphasia/ rue weakness - Pt was felt to have possibly have had an acute CVA, probably left MCA. - Labs at admission revealed rhabdomyolysis from falls/lying on floor, mild hyponatremia and mild dehydration. - On examination she has multiple contusions of the arms/legs - Head CT (05/26) --> No acute disease. - MRI Brain (05/26) --> Mild periventricular white matter small vessel ischemic changes bilaterally. No acute infarct, acute hemorrhage, mass effect, or extra-axial fluid collection. - MRA Brain (05/26) --> Limited examination due to patient motion. Poor visualization of the distal branches of the right middle cerebral artery raising the possibility of severe stenosis of this vessel although no acute infarct is identified on the accompanying MRI of the brain done the same day. - Carotid US (05/26) --> No hemodynamically significant stenosis - Telemetry with some runs of SVT noted - Holter - 2D echo --> pending - FLP --> Triglycerides 162, Total cholesterol 146, LDL 72, HDL 42 - HgbA1C is pending - Permissive HTN (pt is normally on Norvasc 5mg daily, Triamterene/HCTZ 37.5/25 po daily) - Consult Neurology - We will get an MRI of the right shoulder as she has had multiple falls and its unclear if she perhaps has a rotator cuff tear causing her inability to lift/abduct her RUE. She has good/equal size worker strength bilaterally - ASA daily - Pt has been on NS 70mL/hr - PT/OT/ST (2) Rhabdomyolysis ICD Codes: M62.82 - Rhabdomyolysis Status: Acute Plan: - Labs at admission with total CK 2350/CK-MB 16.8 - Pt ahs been receiving IVF - Repeat labs today with CK 2754/CK-MB 10.2 - Cont. IVF - Monitor labs (3) Hypokalemia ICD Codes: E87.6 - Hypokalemia Plan: - Replace - Monitor labs (4) Hyponatremia ICD Codes: E87.1 - Hypo-osmolality and hyponatremia Status: Acute Plan: - Repeat labs today with Na+ 134 - Encourage oral intake - Cont. IVF - Monitor (5) Hypothyroid ICD Codes: E03.9 - Hypothyroidism, unspecified Status: Chronic Plan: - Home meds continued (6) HTN (hypertension) ICD Codes: I10 - Essential (primary) hypertension Status: Chronic Plan: - Home meds on hold for permissive HTN (7) DM type 2 (diabetes mellitus, type 2) ICD Codes: E11.9 - Type 2 diabetes mellitus without complications Status: Chronic Plan: - Home meds on hold - NovoLog SSI - Accu check Assessment and Plan Patient examined. Assessment and plan formulated with Do Sylvester PA-C. I agree with the above. Problem Qualifiers (1) CVA (cerebral vascular accident): Qualified Codes: I63.9 - Cerebral infarction, unspecified Do Sylvester May 27, 2017 14:58 Gilmar Murillo DO May 30, 2017 01:07
[2017-05-27 16:11] LABS: HEMOGLOBIN A1a 1.5 %; HEMOGLOBIN A1b 1.3 %; HEMOGLOBIN Ao 80.7 %; HEMOGLOBIN F 2.6 %; HEMOGLOBIN LA1C 2.4 %; HEMOGLOBIN P3 4.1 %
[2017-05-27] MEDS ORDERED: LORazepam 1 MG TAB PO ONE (16:15)
--- NOTE | 2017-05-27 20:11 | ECHRPT ---
Indication: CVA/ TIA CONCLUSIONS Normal left ventricular size. Mild concentric left ventricular hypertrophy. The left ventricular systolic function is normal with an estimated ejection fraction of 55%. Doppler parameters are consistent with impaired left ventricular relaxtion (grade 1 diastolic dysfun ction). The left atrial size is [id number]-[id number] dilated. [id number] mitral valve regurgitation. Moderate mitral annular calcification. A prominent epicardial fat pad is present. BP: / HR: Rhythm: Sinus MEASUREMENTS (Male / Female) Normal Values Technical Quality:Fair 2D ECHO LV Diastolic Diameter PLAX 5.0 cm 4.2 - 5.9 / 3.9 - 5.3 cm LV Systolic Diameter PLAX 3.9 cm IVS Diastolic Thickness 1.3 cm 0.6 - 1.0 / 0.6 - 0.9 cm LVPW Diastolic Thickness 1.3 cm 0.6 - 1.0 / 0.6 - 0.9 cm LV Relative Wall Thickness 0.5 LVOT Diameter 2.1 cm Aortic Root Diameter 3.2 cm LA Systolic Diameter LX 3.0 cm 3.0 - 4.0 / 2.7 - 3.8 cm M-MODE AV Cusp Separation MM 1.7 cm DOPPLER AV Peak Velocity 125.0 cm/s AV Peak Gradient 6.3 mmHg AV Mean Gradient 3.0 mmHg AV Velocity Time Integral 21.2 cm LVOT Peak Velocity 70.7 cm/s LVOT Peak Gradient 2.0 mmHg LVOT Velocity Time Integral 11.2 cm AV Area Cont Eq vti 1.8 cm AV Area Cont Eq pk 2.0 cm Mitral E Point Velocity 58.2 cm/s Mitral A Point Velocity 91.8 cm/s Mitral E to A Ratio 0.6 LV E' Lateral Velocity 6.6 cm/s Mitral E to LV E' Lateral Ratio 8.8 LV E' Septal Velocity 5.4 cm/s Mitral E to LV E' Septal Ratio 10.9 PV Peak Velocity 79.0 cm/s PV Peak Gradient 2.5 mmHg FINDINGS LEFT VENTRICLE Normal left ventricular size. Mild concentric left ventricular hypertrophy. The left ventricular systolic function is normal with an estimated ejection fraction of 55%. Doppler parameters are consistent with impaired left ventricular relaxtion (grade 1 diastolic dysfun ction). RIGHT VENTRICLE Normal right ventricular size and systolic function. LEFT ATRIUM The left atrial size is syjx-zy-ztszkiasui dilated. RIGHT ATRIUM The right atrial size is normal. ATRIAL SEPTUM The interatrial septum not well visualized. AORTA The aortic root and proximal ascending aorta are not well visualized. MITRAL VALVE Structurally normal mitral valve. Yozex-bp-yvrv mitral valve regurgitation. Moderate mitral annular calcification. No mitral valve stenosis. AORTIC VALVE The aortic valve is not well visualized. TRICUSPID VALVE Structurally normal tricuspid valve. No tricuspid regurgitation. PULMONARY VALVE The pulmonary valve is not well visualized. VESSELS The inferior vena cava was not well visualized. PERICARDIUM A prominent epicardial fat pad is present. Moises Verdin MD, FACC (Electronically Signed) Final Date:27 May 2017 20:10
[2017-05-27] MEDS: ATORVASTATIN 40 MG TAB PO SCH (21:31)
[2017-05-27 22:14] LABS: POTASSIUM 3.3 MEQ/L (3.5-5.1)
[2017-05-28] VITALS (8 sets, daily range): BP systolic 169–194; BP diastolic 74–96; PULSE 62–80; RESP 18–20; TEMP 97.4–98.4; O2SAT 94–98
--- NOTE | 2017-05-28 05:53 | MB ---
cc: EFREN ALDRIDGE M.D. DATE OF CONSULTATION 05/27/2017 AGE: [age] years old She is accompanied by her daughter. HISTORY OF PRESENT ILLNESS She lives alone and she has had three falls in recent time. She had two of the falls over the weekend. It appears that at least two falls were explained by a stumble on something on the floor such as a curb and something in her house. It appears that she did not lose consciousness on these witnessed two falls. Another fall was unwitnessed. She has had some transient, confusional episodes since she had the first fall. Even in the hospital apparently at times she seems a bit confused but only intermittently. PAST MEDICAL HISTORY Diabetes. Hypertension. MEDICATIONS 1. Norvasc. 2. Triamterine. 3. Glimepiride. 4. Synthroid. 5. Lorazepam. PHYSICAL EXAMINATION The exam shows the patient to be awake, alert, pleasant and she is in good spirits. She seems well oriented at the time of my visit. She made sense throughout and provided appropriate answers. Normally she drives a car. takes care of her affairs though the daughters live nearby and provide support. She lives alone. I did not ambulate her. She has extensive bruising in both knees and the right shoulder. The right arm abduction is significantly impaired and she will shrug the shoulder instead of abducting the arm. The reflexes were trace versus absent throughout. Plantar responses probably flexor. Position sense preserved in the distal lower extremities. IMAGING STUDIES She has had a number of studies including MRI brain, carotid ultrasound which were unremarkable studies, no acute disease. LABORATORY DATA Her sodium yesterday was 131, potassium 3.6, BUN and creatinine normal. Glucose 187. CPK 2350 yesterday and today 2754, LDL 72. WBC yesterday was 15.1 and today 9.5. ASSESSMENT Recurrent falls. There is some alteration of level of consciousness intermittently. No stroke by MRI and carotid ultrasound unremarkable. She might have become somewhat forgetfulness lately. RECOMMENDATIONS I will add an MRI cervical spine, check B12 and RPR. She likely has had a right rotator cuff injury and reportedly an MRI shoulder is already ordered. I will follow the neurological care. Thank you for asking us to participate in her care. MD KERI Yo/SSB /5:47 PM /5:43 AM
[2017-05-28] MEDS: INSULIN ASPART SUPPLEMENTAL SCALE SQ SCH ×4 (06:13→21:08)
[2017-05-28] MEDS: LEVOTHYROXINE SODIUM 100 MCG TAB PO SCH (06:14)
[2017-05-28] MEDS: SODIUM CHLOR 0.9% 1000 ML INJ 1,000 ML IV SCH (07:09)
[2017-05-28] MEDS: ASPIRIN 81 MG CHEW TAB CHEW SCH (08:15)
[2017-05-28] MEDS: LORazepam 1 MG TAB PO PRN (08:48)
--- NOTE | 2017-05-28 10:46 | RADRPT ---
EXAM DATE/TIME: 05/28/2017 09:49 [facility] COMPARISON: No previous studies available for comparison. INDICATIONS : Extremity weakness. Right sided weakness. MEDICAL HISTORY : Hypertension. Diabetes mellitus type 2. SURGICAL HISTORY : Inguinal hernia repair. Cholecystectomy. Hysterectomy. ENCOUNTER: Initial ACUITY: 2 day PAIN SCORE: 0/10 LOCATION: neck TECHNIQUE: Multiplanar, multisequence MRI examination of the cervical spine was performed. FINDINGS: VERTEBRAE: Fusion of the T1 and T2 vertebral bodies. ALIGNMENT: Mild grade 1 anterolisthesis of C6 on C7. CORD: A syrinx is seen throughout the cervical cord. Maximum diameter is 3 mm. The cord is otherwise normal in signal. POST FOSSA: The cerebellar tonsils are normal in position. C2-C3: The thecal sac has a normal configuration. There is no evidence of disc herniation or spinal canal s tenosis. The neural foramina are patent bilaterally. C3-C4: There is disc desiccation. A broad based disc osteophyte complex eccentric to the left impresses upon the left ventral portion of the cord causing mild flattening. The anterior to posterior dimension of the central canal in the midline is 7 mm. Bony uncovertebral hypertrophy generates bilateral neural foraminal narrowing. C4-C5: Disc desiccation with broad-based disc osteophyte complex that flattens the ventral portion of the co rd. Anterior to posterior dimension of the central canal is 7 mm in the midline. Prominent bony uncov ertebral hypertrophy generates significant bilateral neural foraminal narrowing. C5-C6: Disc desiccation with broad-based disc osteophyte complex that flattens the ventral portion of the co rd. Anterior to posterior dimension of the central canal is 8 mm in the midline. Prominent bony uncov ertebral hypertrophy generates significant bilateral neural foraminal narrowing. C6-C7: There is disc desiccation. Anterolisthesis. A broad-based disc osteophyte complex eccentric to the le ft flattens the left ventral portion of the cord. Central canal measures 8 mm in the midline. Neural foramina are patent bilaterally. C7-T1: The thecal sac has a normal configuration. There is no evidence of disc herniation or spinal canal s tenosis. The neural foramina are patent bilaterally. CONCLUSION: 1. Syrinx. 2. Multilevel degenerative changes with areas of impression upon the cord as well as neural foraminal narrowing as detailed at each level in the above discussion. 3. Anterolisthesis of C6 on C7. 4. Fusion of T1 and T2. Santi Marrero Jr., MD on May 28, 2017 at 10:36 Board Certified Radiologist. This report was verified electronically.
--- NOTE | 2017-05-28 13:51 | RADRPT ---
EXAM DATE/TIME: 05/28/2017 10:04 [facility] COMPARISON: No previous studies available for comparison. INDICATIONS : Rt arm weakness. Pt fell. Bruising rt arm. MEDICAL HISTORY : Diabetes mellitus type 2. Hypertension. SURGICAL HISTORY : Inguinal hernia repair. Cholecystectomy. Hysterectomy. ENCOUNTER: Initial ACUITY: 2 day PAIN SCORE: 0/10 LOCATION: Right shoulder TECHNIQUE: Multiplanar, multisequence MRI examination was performed without contrast. FINDINGS: There is a large full-thickness rotator cuff tear with a 2 cm gap in the distal tendon with fraying a nd abnormal signal intensity in the proximal tendon as well as atrophy of the supraspinatus muscle. T he shoulder is high riding and there is impingement cysts in the lateral humeral head. There is osteo phyte formation involving the inferior medial humeral head. No acute fractures seen. A joint effusion is present. 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 There is signifi cant motion on the axial images being evaluation. The biceps tendon is intact. There is muscular jeyson a involving the infraspinatus muscle compatible with soft tissue injury. CONCLUSION: 1. Large full-thickness tear of the supraspinatus tendon with features of chronicity. 2. No acute fractures identified. Muscle edema involving the infraspinatus characteristic of contusio n Jose J Edmond MD on May 28, 2017 at 11:52 Board Certified Radiologist. This report was verified electronically.
[2017-05-28] MEDS: ACETAMINOPHEN 325 MG TAB PO PRN (14:09)
[2017-05-28] MEDS ORDERED: POTASSIUM CHLORIDE 20 MEQ CONTROLLED RELEASE TAB PO ONE (16:45)
--- NOTE | 2017-05-28 16:48 | HHI.PR ---
Subjective Remarks Pt sitting up in chair. No new complaints Pts family concerned about some intermittent confusion she has had since her most recent fall Objective Vitals Vital Signs Date Time Temp Pulse Resp B/P (MAP) Pulse Ox O2 Delivery O2 Flow Rate FiO2 05/28/17 16:00 97.4 70 19 193/87 (122) 96 05/28/17 12:00 97.9 70 19 194/96 (128) 95 05/28/17 08:00 97.7 70 19 190/82 (118) 94 05/28/17 07:00 62 05/28/17 03:50 98.2 74 18 172/74 (106) 98 05/28/17 00:54 98.4 68 18 169/82 (111) 98 05/27/17 21:04 98.0 91 18 181/80 (113) 94 05/27/17 19:00 75 05/27/17 16:41 97.9 77 20 209/100 (136) 94 05/28/17 05/28/17 05/29/17 15:00 23:00 07:00 Intake Total 169 ml 480 ml Balance 169 ml 480 ml Intake Oral 480 ml IV Total 169 ml # Voids 5 # Bowel Movements 0 Result Diagram: 05/27/17 0650 05/27/172033 Other Results Laboratory Tests Test 05/27/17 06:50 05/27/17 20:34 White Blood Count 9.5 TH/MM3 Red Blood Count 4.21 MIL/MM3 Hemoglobin 12.6 GM/DL Hematocrit 36.8 % Mean Corpuscular Volume 87.3 FL Mean Corpuscular Hemoglobin 29.8 PG Mean Corpuscular Hemoglobin Concent 34.2 % Red Cell Distribution Width 14.8 % Platelet Count 308 TH/MM3 Mean Platelet Volume 7.8 FL Neutrophils (%) (Auto) 77.9 % Lymphocytes (%) (Auto) 13.0 % Monocytes (%) (Auto) 8.2 % Eosinophils (%) (Auto) 0.3 % Basophils (%) (Auto) 0.6 % Neutrophils # (Auto) 7.4 TH/MM3 Lymphocytes # (Auto) 1.2 TH/MM3 Monocytes # (Auto) 0.8 TH/MM3 Eosinophils # (Auto) 0.0 TH/MM3 Basophils # (Auto) 0.1 TH/MM3 CBC Comment DIFF FINAL Differential Comment Blood Urea Nitrogen 8 MG/DL Creatinine 0.51 MG/DL Random Glucose 163 MG/DL Calcium Level 8.2 MG/DL Sodium Level 134 MEQ/L Potassium Level 2.8 MEQ/L 3.3 MEQ/L Chloride Level 97 MEQ/L Carbon Dioxide Level 25.6 MEQ/L Anion Gap 11 MEQ/L Estimat Glomerular Filtration Rate 117 ML/MIN Hemoglobin A1c 7.1 % Total Creatine Kinase 2754 U/L Creatine Kinase MB 10.2 NG/ML Creatine Kinase MB % 0.4 % Triglycerides Level 162 MG/DL Cholesterol Level 146 MG/DL LDL Cholesterol 72 MG/DL HDL Cholesterol 42.1 MG/DL Cholesterol/HDL Ratio 3.46 RATIO Vitamin B12 Level 401 PG/ML Rapid Plasma Reagin NON-REACTIVE Imaging Last Impressions Shoulder MRI 05/28/17 Signed Impressions: Service Date/Time: Sunday, May 28, 2017 10:04 - CONCLUSION: 1. Large full-thickness tear of the supraspinatus tendon with features of chronicity. 2. No acute fractures identified. Muscle edema involving the infraspinatus characteristic of contusion Jose J Edmond MD Cervical Spine MRI 05/28/17 Signed Impressions: Service Date/Time: Sunday, May 28, 2017 09:49 - CONCLUSION: 1. Syrinx. 2. Multilevel degenerative changes with areas of impression upon the cord as well as neural foraminal narrowing as detailed at each level in the above discussion. 3. Anterolisthesis of C6 on C7. 4. Fusion of T1 and T2. Santi Marrero Jr., MD Head CT 05/26/17934 Signed Impressions: Service Date/Time: Friday, May 26, 2017 10:04 - CONCLUSION: No acute disease. Hermelinda Edwards MD Chest X-Ray 05/26/17934 Signed Impressions: Service Date/Time: Friday, May 26, 2017 09:51 - CONCLUSION: Significant hypoinflation of the lungs. The enlargement of cardiac silhouette and prominence of the pulmonary vasculature may be secondary to portable technique versus congestive heart failure and pulmonary edema. Recommend upright PA and lateral views when clinically able. Hermelinda Edwards MD Knee X-Ray 05/26/17 Signed Impressions: Service Date/Time: Friday, May 26, 2017 09:56 - CONCLUSION: Focal soft tissue overlying the patella which may represent an area of focal or situs or hematoma. Hermelinda Edwards MD Humerus X-Ray 05/26/17 Signed Impressions: Service Date/Time: Friday, May 26, 2017 09:52 - CONCLUSION: Unremarkable examination of the right humerus. Hermelinda Edwards MD Head Magnetic Resonance Angiography 05/26/17 Signed Impressions: Service Date/Time: Friday, May 26, 2017 19:02 - CONCLUSION: 1. Limited examination due to patient motion. 2. Poor visualization of the distal branches of the right middle cerebral artery raising the possibility of severe stenosis of this vessel although no acute infarct is identified on the accompanying MRI of the brain done the same day. Clinical correlation is recommended. Kevin Jay MD Carotid Artery Ultrasound 05/26/17 Signed Impressions: Service Date/Time: Friday, May 26, 2017 17:43 - CONCLUSION: No hemodynamically significant stenosis. Kevin Jay MD Brain MRI 05/26/17 Signed Impressions: Service Date/Time: Friday, May 26, 2017 19:02 - CONCLUSION: 1. Mild periventricular white matter small vessel ischemic changes bilaterally. 2. No acute infarct, acute hemorrhage, mass effect, or extra-axial fluid collection. Kevin Jay MD Objective Remarks General: NAD, Awake, alert Chest: CTA Cardiac: Regular Abd: +BS, soft ND/NT Ext: Multiple areas of ecchymoses on the UE and LE Neuro: Speech normal, equal rn ante partum strength in the hands, pt has difficulty with abducting or lifting the RUE A/P Problem List: (1) Recurrent falls ICD Codes: R29.6 - Repeated falls Plan: - Pt is 76 yo with DM-2 and HTN who presented to the ED with expressive aphasia/ rue weakness - Pt was initially thought to have had an acute CVA but now this is not clearly the case. - Family reports that she has been having recurrent but intermittent falls since February 2017 and seems to have been having some forgetfulness and general decline. Prior to her falls in February she had been very independent, driving herself and managing her own household. - Labs at admission revealed rhabdomyolysis from falls/lying on floor, mild hyponatremia and mild dehydration. - On examination she has multiple contusions of the arms/legs - Head CT (05/26) --> No acute disease. - MRI Brain (05/26) --> Mild periventricular white matter small vessel ischemic changes bilaterally. No acute infarct, acute hemorrhage, mass effect, or extra-axial fluid collection. - MRA Brain (05/26) --> Limited examination due to patient motion. Poor visualization of the distal branches of the right middle cerebral artery raising the possibility of severe stenosis of this vessel although no acute infarct is identified on the accompanying MRI of the brain done the same day. - Carotid US (05/26) --> No hemodynamically significant stenosis - Telemetry with some runs of SVT noted - Holter --> Pending - 2D echo --> Mild concentric LVH, estimated EF 55%, grade 1 diastolic dysfunction, LA [id number] dilated, [id number] mitral valve regurgitation, moderate mitral annular calcification - FLP --> Triglycerides 162, Total cholesterol 146, LDL 72, HDL 42 - HgbA1C is 7.1% - Pts BP medications were initially held for permissive HTN but does not appear that the pt has had a stroke so her home BP meds will be resumed. (Pt is normally on Norvasc 5mg daily, Triamterene/HCTZ 37.5/25 po daily) - Appreciate consult from Neurology - EEG ordered - Cervical Spine MRI (05/28) --> Syrinx. Multilevel degenerative changes with areas of impression upon the cord as well as neural foraminal narrowing. Anterolisthesis of C6 on C7. Fusion of T1 and T2. - MRI of the right shoulder (05/28) -->Large full-thickness tear of the supraspinatus tendon with features of chronicity. No acute fractures identified. Muscle edema involving the infraspinatus characteristic of contusion - Consult Neurosurgery - She will need outpt followup with Orthopedic Surgery for the right rotator cuff tear. - Stop IVF - ASA daily - PT/OT/ST - DVT prophylaxis with SCDs (2) Rhabdomyolysis ICD Codes: M62.82 - Rhabdomyolysis Status: Acute Plan: - Labs at admission with total CK 2350/CK-MB 16.8 - Pt has been receiving IVF - Repeat labs on 05/27 with CK 2754/CK-MB 10.2 - Repeat labs in AM (3) Hypokalemia ICD Codes: E87.6 - Hypokalemia Plan: - Replace - Monitor labs (4) Hyponatremia ICD Codes: E87.1 - Hypo-osmolality and hyponatremia Status: Acute Plan: - Repeat labs 05/27 with Na+ 134 - Encourage oral intake - Monitor (5) Hypothyroid ICD Codes: E03.9 - Hypothyroidism, unspecified Status: Chronic Plan: - Home meds continued (6) HTN (hypertension) ICD Codes: I10 - Essential (primary) hypertension Status: Chronic Plan: - Resume home meds - Clonidine PRN (7) DM type 2 (diabetes mellitus, type 2) ICD Codes: E11.9 - Type 2 diabetes mellitus without complications Status: Chronic Plan: - Home meds on hold - NovoLog SSI - Accu check Assessment and Plan Patient examined. Assessment and plan formulated with Do Sylvester PA-C. I agree with the above. Do Sylvester May 28, 2017 16:48 Gilmar Murillo DO May 30, 2017 01:07
--- NOTE | 2017-05-28 16:58 | PD.CONS ---
[facility] Service Neurosurgery Consult Requested By Dr. Murillo Reason for Consult Spinal stenosis Primary Care Physician Brett Morgan M.D. History of Present Illness This is 76 female with history of arterial hypertension, diabetes mellitus, hyperlipidemia brought to the emergency department after being found down. Her daughter and grand daughter provided her history. Apparently she lives in [facility] and she is very funtional. . She drives a car and is able to ambulate normally to the grocery store. Last weekend she fell and was seen by her family doctor and had xray on her leg and arm. Apparently 3 days ago she had another fall. she was found lying on the floor. The helped her to a chair and when she arrived her pt had expressive aphasia and rue weakness. No seizure activity reported. No tongue biting. No incontinence of stool or urine. She underwent CT head which was negative. Her MRI cervical spine showed spinal stenosis. Neurosurgical consultation was requested Past Family Social History Allergies: Coded Allergies: Sulfa (Sulfonamide Antibiotics) (Unverified Allergy, Severe, HIVES, ) ITCHING Uncoded Allergies: SULFA-ITCHING (Allergy, Unknown, 06/08/03) Past Medical History Arterial hypertension Dilated hypothyroidism Past Surgical History hernia repair hysterectomy cholecystectomy Reported Medications Lorazepam 1 Mg Tab 1 Mg PO BID PRN Norvasc (Amlodipine Besylate) 5 Mg Tab 5 Mg PO DAILY Atorvastatin (Atorvastatin Calcium) 20 Mg Tab 20 Mg PO HS Triamterene-Hydrochlorothiazide 37.5-25 Mg Cap 1 Cap PO DAILY Synthroid (Levothyroxine Sodium) 100 Mcg Tab 100 Mcg PO DAILY Glimepiride 1 Mg Tab 1 Mg bid Active Ordered Medications Current Medications Sodium Chloride (NS Flush) 2 ml UNSCH PRN IVF FLUSH AFTER USING IV ACCESS Last administered on 05/27/17 09:19; Start 05/26/17 at 09:45 Aspirin (Aspirin Supp) 300 mg ONCE ONCE RECTAL Last administered on 05/26/17 10:57; Start 05/26/17 at 10:45; Stop 05/26/17 at 10:46; Status DC Sodium Chloride 1,000 ml @ 70 mls/hr [id number] IV Last administered on 16:51; Start 05/26/17 at 12:15; Stop 05/28/17 at 16:44; Status DC Aspirin (Aspirin Chew) 81 mg DAILY CHEW Last administered on 05/28/17 08:15; Start 05/27/17 at 09:00 Atorvastatin Calcium (Lipitor) 40 mg HS PO Last administered on 05/27/17 21:31 ; Start 05/26/17 at 21:00 Levothyroxine Sodium (Synthroid) 100 mcg DAILY@0600 PO Last administered on 06:14; Start 05/27/17 at 06:00 Lorazepam (Ativan) 1 mg BID PRN PO ANXIETY Last administered on 05/28/17 08:48 ; Start 05/26/17 at 15:45 Insulin Aspart (NovoLOG SUPPLEMENTAL SCALE) 1 ACHS SLIDING SCALE SQ Last administered on 05/28/17 16:00; Start 05/26/17 at 16:00 Enalaprilat (Vasotec Inj) 1.25 mg Q6H PRN IV PUSH SBP > 220; Start 05/26/17 at 15:45 Dextrose (D50w (Vial) Inj) 50 ml UNSCH PRN IV PUSH HYPOGLYCEMIA - SEE COMMENTS ; Start 05/26/17 at 16:00 Glucagon (Glucagon Inj) 1 mg UNSCH PRN OTHER HYPOGLYCEMIA-SEE COMMENTS; Start 05/26/17 at 16:00 Potassium Chloride (KCl) 40 meq Q4H PO Last administered on 05/27/17 17:00; Start 05/27/17 at 13:00; Stop 05/27/17 at 17:01; Status DC Acetaminophen (Tylenol) 650 mg Q6H PRN PO pain 1-5 Last administered on 14:09; Start 05/27/17 at 12:30 Acetaminophen/ Hydrocodone Bitart (Wilmer 5-325 Mg) 1 tab Q6H PRN PO pain 6-10 Last administered on 05/27/17 13:56; Start 05/27/17 at 12:30 Lorazepam (Ativan) 1 mg ONCE ONCE PO Last administered on 05/27/17 16:15; Start 05/27/17 at 16:15; Stop 05/27/17 at 16:42; Status DC Amlodipine Besylate (Norvasc) 5 mg DAILY PO ; Start 05/28/17 at 16:45; Status UNV Triamterene/HCTZ (Dyazide 37.5-25 Mg) 1 cap DAILY PO ; Start 05/28/17 at 16:45; Status UNV Potassium Chloride (KCl) 40 meq ONCE ONCE PO ; Start 05/28/17 at 16:45; Stop at 16:46; Status UNV Clonidine (Catapres) 0.1 mg Q6H PRN PO SBP> OR = 180, DBP> OR = 100; Start at 17:00; Status UNV Family History Family history was reviewed and found to be noncontributory to these acute event Social History Negative for alcohol use, tobacco abuse or illicit drug use Physical Exam Vital Signs Vital Signs Date Time Temp Pulse Resp B/P (MAP) Pulse Ox O2 Delivery O2 Flow Rate FiO2 05/28/17 16:00 97.4 70 19 193/87 (122) 96 05/28/17 12:00 97.9 70 19 194/96 (128) 95 05/28/17 08:00 97.7 70 19 190/82 (118) 94 05/28/17 07:00 62 05/28/17 03:50 98.2 74 18 172/74 (106) 98 05/28/17 00:54 98.4 68 18 169/82 (111) 98 05/27/17 21:04 98.0 91 18 181/80 (113) 94 05/27/17 19:00 75 Physical Exam Ms Monet is alert, awake and oriented to time, place and person. Speech is fluent. Higher cognitive functions are normal. She has extensive bruising in both knees and the right shoulder. Cranial nerve examination demonstrates the pupils to be equal, round, and reactive to light. Extra-ocular movements are intact. Facial motor and sensory function are normal and symmetrical. Gross hearing is intact, bilaterally. The uvula is midline and elevates symmetrically with the soft palate. Sternocleidomastoid and trapezius muscles have normal and symmetrical strength. Other cranial nerves are intact. Neck is soft and supple. Cervical spine has a decreased range of motion in anterior flexion, extension, lateral bending, and rotation with mild pain. There is no tenderness to palpation to the spinous processes. Muscle testing reveals normal bulk and tone overall without rigidity, spasticity , fasciculations, or atrophy. The right arm abduction is significantly impaired due to pain. Muscle strength is 5/5 in all muscle groups of both upper extremities including deltoid, biceps, triceps, brachioradialis, wrist extension and hospitalist. In the lower extremities, strength is 5/5 in both iliopsoas , quadriceps, hamstrings, plantar flexion, dorsiflexion, and extensor hallicus longus. Sensory examination is intact to light touch and sharp/dull discrimination in both the upper and lower extremities, symmetrically. Deep tendon reflexes are 2+ and symmetrical in the biceps, triceps, and brachioradialis, bilaterally, in the upper extremities. In the lower extremities , the patellar and Achilles are 2+, bilaterally. There is a bilateral plantar flexion response. Hoffmanns sign is negative. There is no clonus or other abnormal reflexes noted. Cerebellar examination is intact to [id number] test, rapid rhythmic alternating motion. There is no dysmetria, dysdiadochokinesia, truncal ataxia, or tremor. Laboratory Laboratory Tests Test 05/27/17 20:34 Potassium Level 3.3 Vitamin B12 Level 401 Rapid Plasma Reagin NON-REACTIVE Result Diagram: 05/27/17 0650 05/27/172033 Imaging Last 48 hours Impressions Shoulder MRI 05/28/17 0000 Signed Impressions: Service Date/Time: Sunday, May 28, 2017 10:04 - CONCLUSION: 1. Large full-thickness tear of the supraspinatus tendon with features of chronicity. 2. No acute fractures identified. Muscle edema involving the infraspinatus characteristic of contusion Jose J Edmond MD Cervical Spine MRI 05/28/17 0000 Signed Impressions: Service Date/Time: Sunday, May 28, 2017 09:49 - CONCLUSION: 1. Syrinx. 2. Multilevel degenerative changes with areas of impression upon the cord as well as neural foraminal narrowing as detailed at each level in the above discussion. 3. Anterolisthesis of C6 on C7. 4. Fusion of T1 and T2. Santi Marrero Jr., MD Assessment and Plan Assessment and Plan 76 yo with dm2 and htn presents with expressive aphasia/rue weakness (1) CVA (cerebral vascular accident) ICD Codes: I63.9 - Cerebral infarction, unspecified Status: Acute (2) Rhabdomyolysis ICD Codes: M62.82 - Rhabdomyolysis Status: Acute (3) Hyponatremia ICD Codes: E87.1 - Hypo-osmolality and hyponatremia Status: Acute (4) Hypothyroid ICD Codes: E03.9 - Hypothyroidism, unspecified Status: Chronic (5) HTN (hypertension) ICD Codes: I10 - Essential (primary) hypertension Status: Chronic (6) DM type 2 (diabetes mellitus, type 2) ICD Codes: E11.9 - Type 2 diabetes mellitus without complications Status: Chronic Attending Statement Continue neuro checks in a serial fashion. Sudden episode of aphasia and right upper extremity weakness suggests a TIA in MCA territory. MRI was negative. I nalso reviewed her MRA. Started on aspirin Cervical spinal stenosis., I have discussed the alternative methods of treatment including, conservative management, pain management by an interventional paint prep technician, or a surgical decompression as a last resort. She does not want any invasive procedure and wants to continue conservative treatment. I discussed with her the alternative of continuing nonsurgical treatment with physical therapy, analgesics, and antiimflammatories , versus consideration to a surgical decompression rhabdomyolysis from falls/lying on floor. Careeful IV hydration mild hyponatremia mild dehydration. Normal saline. Follow up BMP multiple contusions of arms/legs.Symptomatic treatment Right shoulder rotator cuff injury. Defer to orthopedics RESP: aggressive pulmonary toilette, nasotracheal suction, and breathing treatments with nebulizers. PT eval Nutrition. Oral diet Renal. monitor closely urine output, BUN and creatinine Endocrine. Monitor serial Acu checks and SSI as needed in detail ID monitor for signs of infection Protonix for stress ulcer prophylaxis Frederick de guzman and SCD's for DVT prophylaxis Rufino Zarate MD May 28, 2017 16:58
[2017-05-28] MEDS ORDERED: SODIUM CHLOR 0.9% 1000 ML INJ 1,000 ML IV SCH (17:15)
[2017-05-28] MEDS ORDERED: POLYETHYLENE GLYCOL 17 GM PKG PO PRN (17:15)
[2017-05-28] MEDS: amLODIPine BESYLATE 5 MG TAB PO SCH (17:41)
[2017-05-28] MEDS: TRIAMTERENE/HCTZ 37.5 MG/25 MG CAP PO SCH (17:42)
--- NOTE | 2017-05-28 20:31 | MG ---
cc: DAMARIS ESQUEDA MD Lab No: [id number] Date: 05/27/17 Age: 76 Sex: F Race: DATE OF [address] Iyer With photic stimulation. Awake, drowsy asleep study. MRI shows white matter changes, nothing acute. The patient was found on the floor, fall. Had a fall several times in the last several days, right upper extremity bruisies, expressive aphasia noted by the mobile home technician. There is history of hypertension, diabetes, fall. MEDICATIONS Aspirin Lipitor Synthroid insulin. DESCRIPTION She has some mild slowing predominately at 4.5-6 Hz. Somewhat attenuated background. A lot of movements in her feet noted. Electrocardiogram true rhythm. Photic stimulation does elicit a mild posterior driving response. There are no epileptiform features noted. IMPRESSION Abnormal due to some mild slowing, may be due to some mild encephalopathic process. No gross epileptiform features seen or recorded in this study. Clinical correlation. MD GENNARO Keen/ /8:09 PM /8:24 PM
[2017-05-28] MEDS: ATORVASTATIN 40 MG TAB PO SCH (21:12)
[2017-05-28] MEDS: DOCUSATE SODIUM 100 MG CAP PO SCH (21:12)
--- NOTE | 2017-05-28 21:22 | HHI.PR ---
Review/Management Daily Summary 05/28 much improved this pm again spoke with daughter at bedside more alert and back to baseline discussed deep Zarate doubt but possible tia asa/statin and [facility] orth[facility] for [place] office f/u in 3-4 weeks Subjective Subjective Comments No acute events reported No headache No chest pain No dyspnea Active Medications Current Medications Medications (Trade) Dose Ordered Sig/Monse Route Start Time Stop Time Status Last Admin (NS Flush) 2 ml UNSCH PRN IVF 05/26/17 09:45 05/27/17 09:19 (Aspirin Chew) 81 mg DAILY CHEW 05/27/17 09:00 05/28/17 08:15 (Lipitor) 40 mg HS PO 05/26/17 21:00 05/28/17 21:12 (Synthroid) 100 mcg DAILY@0600 PO 05/27/17 06:00 05/28/17 06:14 (Ativan) 1 mg BID PRN PO 05/26/17 15:45 05/28/17 08:48 (NovoLOG SUPPLEMENTAL SCALE) 1 ACHS SLIDING SCALE SQ 05/26/17 16:00 05/28/17 21:08 (Vasotec Inj) 1.25 mg Q6H PRN IV PUSH 05/26/17 15:45 (D50w (Vial) Inj) 50 ml UNSCH PRN IV PUSH 05/26/17 16:00 (Glucagon Inj) 1 mg UNSCH PRN OTHER 05/26/17 16:00 (Tylenol) 650 mg Q6H PRN PO 05/27/17 12:30 05/28/17 14:09 (Elmore 5-325 Mg) 1 tab Q6H PRN PO 05/27/17 12:30 05/27/17 13:56 (Norvasc) 5 mg DAILY PO 05/28/17 16:45 05/28/17 17:41 (Dyazide 37.5-25 Mg) 1 cap DAILY PO 05/28/17 16:45 (Catapres) 0.1 mg Q6H PRN PO 05/28/17 17:00 Sodium Chloride 1,000 ml @ 70 mls/hr [id number] IV 05/28/17 17:15 05/28/17 17:15 (Colace) 100 mg BID PO 05/28/17 21:00 (Miralax) 17 gm DAILY PRN PO 05/28/17 17:15 Allergies Allergies Coded Allergies Sulfa (Sulfonamide Antibiotics) (Unverified Allergy, Severe, HIVES, 05/26/17) Uncoded Allergies SULFA-ITCHING ( Allergy, Unknown, 06/08/03) Exam I&O / VS 05/28/17 05/28/17 05/29/17 15:00 23:00 07:00 Intake Total 169 ml 480 ml Balance 169 ml 480 ml Intake Oral 480 ml IV Total 169 ml # Voids 5 # Bowel Movements 0 Vital Signs Date Time Temp Pulse Resp B/P (MAP) Pulse Ox O2 Delivery O2 Flow Rate FiO2 05/28/17 16:00 97.4 70 19 193/87 (122) 96 05/28/17 12:00 97.9 70 19 194/96 (128) 95 05/28/17 08:00 97.7 70 19 190/82 (118) 94 05/28/17 07:00 62 05/28/17 03:50 98.2 74 18 172/74 (106) 98 05/28/17 00:54 98.4 68 18 169/82 (111) 98 Objective Radiology Results Last 48 hours Impressions Shoulder MRI 05/28/17 0000 Signed Impressions: Service Date/Time: Sunday, May 28, 2017 10:04 - CONCLUSION: 1. Large full-thickness tear of the supraspinatus tendon with features of chronicity. 2. No acute fractures identified. Muscle edema involving the infraspinatus characteristic of contusion Jose J Edmond MD Cervical Spine MRI 05/28/17 0000 Signed Impressions: Service Date/Time: Sunday, May 28, 2017 09:49 - CONCLUSION: 1. Syrinx. 2. Multilevel degenerative changes with areas of impression upon the cord as well as neural foraminal narrowing as detailed at each level in the above discussion. 3. Anterolisthesis of C6 on C7. 4. Fusion of T1 and T2. Santi Marrero Jr., MD Micro and Labs Laboratory Tests Test 05/26/17 09:40 05/26/17 10:15 05/27/17 06:50 05/27/17 20:34 White Blood Count 15.1 TH/MM3 (4.0-11.0) Neutrophils (%) (Auto) 88.7 % (16.0-70.0) 77.9 % (16.0-70.0) Lymphocytes (%) (Auto) 4.0 % (9.0-44.0) Neutrophils # (Auto) 13.4 TH/MM3 (1.8-7.7) Lymphocytes # (Auto) 0.6 TH/MM3 (1.0-4.8) Random Glucose 187 MG/DL (74-106) 163 MG/DL (74-106) Aspartate Amino Transf (AST/SGOT) 66 U/L (15-37) Sodium Level 131 MEQ/L (136-145) 134 MEQ/L (136-145) Chloride Level 91 MEQ/L (98-107) 97 MEQ/L (98-107) Estimat Glomerular Filtration Rate 72 ML/MIN (>89) Total Creatine Kinase 2350 U/L (26-192) 2754 U/L (26-192) Creatine Kinase MB 16.8 NG/ML (0.5-3.6) 10.2 NG/ML (0.5-3.6) Urine Protein 300 mg/dL (NEG-TRACE) Urine Ketones 80 mg/dL (NEG) Urine Occult Blood MOD (NEG) Urine RBC 7 /hpf (0-3) Monocytes (%) (Auto) 8.2 % (0.0-8.0) Calcium Level 8.2 MG/DL (8.5-10.1) Potassium Level 2.8 MEQ/L (3.5-5.1) 3.3 MEQ/L (3.5-5.1) Hemoglobin A1c 7.1 % (4.3-6.0) Triglycerides Level 162 MG/DL (42-150) Chceo Iyer MD May 28, 2017 21:22
[2017-05-29] VITALS (7 sets, daily range): BP systolic 142–226; BP diastolic 65–122; PULSE 67–75; RESP 18–20; TEMP 97.1–98.6; O2SAT 95–97
[2017-05-29] MEDS: cloNIDine HCL 0.1 MG TAB PO PRN (03:10)
[2017-05-29] MEDS: LEVOTHYROXINE SODIUM 100 MCG TAB PO SCH (05:53)
[2017-05-29] MEDS: INSULIN ASPART SUPPLEMENTAL SCALE SQ SCH ×4 (06:22→20:48)
[2017-05-29 07:00] LABS: BICARBONATE 25.4 MEQ/L (21.0-32.0); MAGNESIUM 1.9 MG/DL (1.5-2.5); POTASSIUM 3.5 MEQ/L (3.5-5.1)
[2017-05-29 07:02] LABS: AUTOMATED NEUTROPHIL # 5.3 TH/MM3 (1.8-7.7); BASOPHIL # 0.1 TH/MM3 (0-0.2); BASOPHIL % 1.1 % (0.0-2.0); EOSINOPHIL # 0.1 TH/MM3 (0-0.4); EOSINOPHIL % 1.8 % (0.0-4.0); HEMATOCRIT 32.8 % (35.0-46.0); HEMO FLAGS DIFF FINAL; LYMPH % 17.7 % (9.0-44.0); LYMPHOCYTE # 1.3 TH/MM3 (1.0-4.8); MEAN CELL VOLUME 88.1 FL (80.0-100.0); MEAN CORPUSCULAR HGB CONC 34.1 % (32.0-36.0); MONO % 8.1 % (0.0-8.0); NEUT % 71.3 % (16.0-70.0); PLATELET COUNT 288 TH/MM3 (150-450); RED BLOOD COUNT 3.73 MIL/MM3 (4.00-5.30); RED CELL DISTRIBUTION WIDTH 14.9 % (11.6-17.2); WHITE BLOOD COUNT 7.4 TH/MM3 (4.0-11.0)
[2017-05-29 07:25] LABS: CKMB 3.6 NG/ML (0.5-3.6)
[2017-05-29] MEDS: TRIAMTERENE/HCTZ 37.5 MG/25 MG CAP PO SCH (08:19)
[2017-05-29] MEDS: ASPIRIN 81 MG CHEW TAB CHEW SCH (08:19)
[2017-05-29] MEDS: amLODIPine BESYLATE 5 MG TAB PO SCH (08:21)
[2017-05-29] MEDS: DOCUSATE SODIUM 100 MG CAP PO SCH ×2 (08:23→20:42)
--- NOTE | 2017-05-29 10:27 | HHI.PR ---
Subjective Remarks Pt did well walking with PT today She feels that she can raise her right arm a bit better today Less confusion today per family Objective Vitals Vital Signs Date Time Temp Pulse Resp B/P (MAP) Pulse Ox O2 Delivery O2 Flow Rate FiO2 05/29/17 08:18 97.1 72 20 142/65 (90) 95 05/29/17 04:00 98.6 75 20 175/82 (113) 97 05/29/17 02:30 97.5 67 185/81 (115) 95 05/28/17 21:00 80 05/28/17 20:00 98.2 70 20 180/80 (113) 97 05/28/17 16:00 97.4 70 19 193/87 (122) 96 05/28/17 12:00 97.9 70 19 194/96 (128) 95 Result Diagram: 05/29/17 0546 05/29/17 0546 Other Results Laboratory Tests Test 05/27/17 20:34 05/29/17 05:46 Potassium Level 3.3 MEQ/L 3.5 MEQ/L Vitamin B12 Level 401 PG/ML Rapid Plasma Reagin NON-REACTIVE White Blood Count 7.4 TH/MM3 Red Blood Count 3.73 MIL/MM3 Hemoglobin 11.2 GM/DL Hematocrit 32.8 % Mean Corpuscular Volume 88.1 FL Mean Corpuscular Hemoglobin 30.0 PG Mean Corpuscular Hemoglobin Concent 34.1 % Red Cell Distribution Width 14.9 % Platelet Count 288 TH/MM3 Mean Platelet Volume 7.9 FL Neutrophils (%) (Auto) 71.3 % Lymphocytes (%) (Auto) 17.7 % Monocytes (%) (Auto) 8.1 % Eosinophils (%) (Auto) 1.8 % Basophils (%) (Auto) 1.1 % Neutrophils # (Auto) 5.3 TH/MM3 Lymphocytes # (Auto) 1.3 TH/MM3 Monocytes # (Auto) 0.6 TH/MM3 Eosinophils # (Auto) 0.1 TH/MM3 Basophils # (Auto) 0.1 TH/MM3 CBC Comment DIFF FINAL Differential Comment Blood Urea Nitrogen 9 MG/DL Creatinine 0.54 MG/DL Random Glucose 187 MG/DL Calcium Level 8.0 MG/DL Magnesium Level 1.9 MG/DL Sodium Level 136 MEQ/L Chloride Level 103 MEQ/L Carbon Dioxide Level 25.4 MEQ/L Anion Gap 8 MEQ/L Estimat Glomerular Filtration Rate 110 ML/MIN Total Creatine Kinase 408 U/L Creatine Kinase MB 3.6 NG/ML Creatine Kinase MB % 0.9 % Imaging Last Impressions Shoulder MRI 05/28/17 Signed Impressions: Service Date/Time: Sunday, May 28, 2017 10:04 - CONCLUSION: 1. Large full-thickness tear of the supraspinatus tendon with features of chronicity. 2. No acute fractures identified. Muscle edema involving the infraspinatus characteristic of contusion Jose J Edmond MD Cervical Spine MRI 05/28/17 Signed Impressions: Service Date/Time: Sunday, May 28, 2017 09:49 - CONCLUSION: 1. Syrinx. 2. Multilevel degenerative changes with areas of impression upon the cord as well as neural foraminal narrowing as detailed at each level in the above discussion. 3. Anterolisthesis of C6 on C7. 4. Fusion of T1 and T2. Santi Marrero Jr., MD Head CT 05/26/1735 Signed Impressions: Service Date/Time: Friday, May 26, 2017 10:04 - CONCLUSION: No acute disease. Hermelinda Edwards MD Chest X-Ray 05/26/17934 Signed Impressions: Service Date/Time: Friday, May 26, 2017 09:51 - CONCLUSION: Significant hypoinflation of the lungs. The enlargement of cardiac silhouette and prominence of the pulmonary vasculature may be secondary to portable technique versus congestive heart failure and pulmonary edema. Recommend upright PA and lateral views when clinically able. Hermelinda Edwards MD Knee X-Ray 05/26/17 Signed Impressions: Service Date/Time: Friday, May 26, 2017 09:56 - CONCLUSION: Focal soft tissue overlying the patella which may represent an area of focal or situs or hematoma. Hermelinda Edwards MD Humerus X-Ray 05/26/17 Signed Impressions: Service Date/Time: Friday, May 26, 2017 09:52 - CONCLUSION: Unremarkable examination of the right humerus. Hermelinda Edwards MD Head Magnetic Resonance Angiography 05/26/17 Signed Impressions: Service Date/Time: Friday, May 26, 2017 19:02 - CONCLUSION: 1. Limited examination due to patient motion. 2. Poor visualization of the distal branches of the right middle cerebral artery raising the possibility of severe stenosis of this vessel although no acute infarct is identified on the accompanying MRI of the brain done the same day. Clinical correlation is recommended. Kevin Jay MD Carotid Artery Ultrasound 05/26/17 0000 Signed Impressions: Service Date/Time: Friday, May 26, 2017 17:43 - CONCLUSION: No hemodynamically significant stenosis. Kevin Jay MD Brain MRI 05/26/17 0000 Signed Impressions: Service Date/Time: Friday, May 26, 2017 19:02 - CONCLUSION: 1. Mild periventricular white matter small vessel ischemic changes bilaterally. 2. No acute infarct, acute hemorrhage, mass effect, or extra-axial fluid collection. 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 - Family reports that she has been having recurrent but intermittent falls since February 2017 and seems to have been having some forgetfulness and general decline. Prior to her falls in February she had been very independent, driving herself and managing her own household. - Labs at admission revealed rhabdomyolysis from falls/lying on floor, mild hyponatremia and mild dehydration. - On examination she has multiple contusions of the arms/legs - Head CT (05/26) --> No acute disease. - MRI Brain (05/26) --> Mild periventricular white matter small vessel ischemic changes bilaterally. No acute infarct, acute hemorrhage, mass effect, or extra-axial fluid collection. - MRA Brain (05/26) --> Limited examination due to patient motion. Poor visualization of the distal branches of the right middle cerebral artery raising the possibility of severe stenosis of this vessel although no acute infarct is identified on the accompanying MRI of the brain done the same day. - Carotid US (05/26) --> No hemodynamically significant stenosis - Telemetry with some runs of atrial tachycardia noted - Holter --> Pending. to be completed at 1600 today - 2D echo --> Mild concentric LVH, estimated EF 55%, grade 1 diastolic dysfunction, LA prns-vm-iofhimksyi dilated, bgbqw-pn-swvb mitral valve regurgitation, moderate mitral annular calcification - FLP --> Triglycerides 162, Total cholesterol 146, LDL 72, HDL 42 - HgbA1C is 7.1% - Pts BP medications were initially held for permissive HTN but does not appear that the pt has had a stroke so her home BP meds will be resumed. (Pt is normally on Norvasc 5mg daily, Triamterene/HCTZ 37.5/25 po daily) - Appreciate consult from Neurology - EEG (05/28) --> Abnormal due to some mild slowing, may be due to some mild encephalopathy - Cervical Spine MRI (05/28) --> Syrinx. Multilevel degenerative changes with areas of impression upon the cord as well as neural foraminal narrowing. Anterolisthesis of C6 on C7. Fusion of T1 and T2. - MRI of the right shoulder (05/28) -->Large full-thickness tear of the supraspinatus tendon with features of chronicity. No acute fractures identified. Muscle edema involving the infraspinatus characteristic of contusion - Await opinion from Neurosurgery - She will need outpt followup with Orthopedic Surgery for the right rotator cuff tear. - Stop IVF - ASA/statin daily - PT/OT/ST - DVT prophylaxis with SCDs (2) Rhabdomyolysis ICD Codes: M62.82 - Rhabdomyolysis Status: Acute Plan: - Labs at admission with total CK 2350/CK-MB 16.8 - Pt has been receiving IVF - Repeat labs on 05/27 with CK 2754/CK-MB 10.2 - Repeat labs on 05/29 with CK 408/CK-MB 3.6 - Stop IVF (3) Hypokalemia ICD Codes: E87.6 - Hypokalemia Plan: - Replaced, improved - Monitor labs (4) Hyponatremia ICD Codes: E87.1 - Hypo-osmolality and hyponatremia Status: Acute Plan: - Repeat labs 05/29 with Na+ 136 - Encourage oral intake - Monitor (5) Hypothyroid ICD Codes: E03.9 - Hypothyroidism, unspecified Status: Chronic Plan: - Home meds continued (6) HTN (hypertension) ICD Codes: I10 - Essential (primary) hypertension Status: Chronic Plan: - Resume home meds - Clonidine PRN (7) DM type 2 (diabetes mellitus, type 2) ICD Codes: E11.9 - Type 2 diabetes mellitus without complications Status: Chronic Plan: - Home meds on hold - NovoLog SSI - Accu check Assessment and Plan Patient examined. Assessment and plan formulated with Do LINDA-C. I agree with the above. - possible TIA? - continue ASA - f/u with Neurology outpt - appreciate input from Neurosurgery. NO surgical intervention at this time - f/u with Dr. Zarate outpt - right rotator cuff tear - continue PT - will need HHC and home PT upon discharge - f/u with Orthopedic Surgeon outpt. Do Sylvester May 29, 2017 10:27 Gilmar Murillo DO May 30, 2017 01:10
[2017-05-29] MEDS: ACETAMINOPHEN 325 MG TAB PO PRN (14:19)
[2017-05-29] MEDS: ATORVASTATIN 40 MG TAB PO SCH (20:42)
--- NOTE | 2017-05-29 21:40 | HHI.NSPN ---
Note Status Status: Progress Note Interval History Interval History This is 76 female with history of arterial hypertension, diabetes mellitus, hyperlipidemia brought to the emergency department after being found down. Her daughter and grand daughter provided her history. Apparently she lives in [facility] and she is very funtional. . She drives a car and is able to ambulate normally to the grocery store. Last weekend she fell and was seen by her pcp and had xray on her leg and arm. Apparently 3 days ago she had another fall. she was found lying on the floor. The helped her to a chair and when she arrived her pt had expressive aphasia and rue weakness. No seizure activity reported. No tongue biting. No incontinence of stool or urine. She underwent CT head which was negative. 05/29. Neurological condition has improved. she has developed supraventricular arrythmia Labs, Micro, & Vital Signs Results Date Time Temp Pulse Resp B/P (MAP) Pulse Ox O2 Delivery O2 Flow Rate FiO2 05/29/17 18:00 71 05/29/17 11:54 97.3 69 20 181/96 (124) 95 05/29/17 11:30 67 05/29/17 08:18 97.1 72 20 142/65 (90) 95 05/29/17 04:00 98.6 75 20 175/82 (113) 97 05/29/17 02:30 97.5 67 185/81 (115) 95 05/30/17 07:00 Intake Total 150 ml Balance 150 ml Constitutional Vital Signs Date Time Temp Pulse Resp B/P (MAP) Pulse Ox O2 Delivery O2 Flow Rate FiO2 05/29/17 18:00 71 05/29/17 11:54 97.3 69 20 181/96 (124) 95 05/29/17 11:30 67 05/29/17 08:18 97.1 72 20 142/65 (90) 95 05/29/17 04:00 98.6 75 20 175/82 (113) 97 05/29/17 02:30 97.5 67 185/81 (115) 95 05/30/17 07:00 Intake Total 150 ml Balance 150 ml Physical Exam Ms Monet is alert, awake and oriented to time, place and person. Speech is fluent. Higher cognitive functions are normal. She has extensive bruising in both knees and the right shoulder. Cranial nerve examination demonstrates the pupils to be equal, round, and reactive to light. Extra-ocular movements are intact. Facial motor and sensory function are normal and symmetrical. Gross hearing is intact, bilaterally. The uvula is midline and elevates symmetrically with the soft palate. Sternocleidomastoid and trapezius muscles have normal and symmetrical strength. Other cranial nerves are intact. Neck is soft and supple. Cervical spine has a decreased range of motion in anterior flexion, extension, lateral bending, and rotation with mild pain. There is no tenderness to palpation to the spinous processes. Muscle testing reveals normal bulk and tone overall without rigidity, spasticity , fasciculations, or atrophy. The right arm abduction is significantly impaired due to pain. Muscle strength is 5/5 in all muscle groups of both upper extremities including deltoid, biceps, triceps, brachioradialis, wrist extension and machine fastener. In the lower extremities, strength is 5/5 in both iliopsoas , quadriceps, hamstrings, plantar flexion, dorsiflexion, and extensor hallicus longus. Sensory examination is intact to light touch and sharp/dull discrimination in both the upper and lower extremities, symmetrically. Deep tendon reflexes are 2+ and symmetrical in the biceps, triceps, and brachioradialis, bilaterally, in the upper extremities. In the lower extremities , the patellar and Achilles are 2+, bilaterally. There is a bilateral plantar flexion response. Hoffmanns sign is negative. There is no clonus or other abnormal reflexes noted. Cerebellar examination is intact to [id number] test, rapid rhythmic alternating motion. There is no dysmetria, dysdiadochokinesia, truncal ataxia, or tremor. Attending Statement She has developed a new supraventricular arythmia. Cardiology evaluation in progress Continue neuro checks in a serial fashion. Sudden episode of aphasia and right upper extremity weakness suggestive of TIA in MCA territory. MRI was negative. I brendanso reviewed her MRA. Started on aspirin Cervical spinal stenosis., I again discussed with her the alternative methods of treatment. She does not want any surgery to her cervical spine and wants to continue conservative treatment. I discussed with her the alternative of continuing nonsurgical treatment with physical therapy, analgesics, and antiimflammatories, versus consideration to a surgical decompression rhabdomyolysis from falls/lying on floor. Careeful IV hydration mild hyponatremia mild dehydration. Normal saline. Follow up BMP multiple contusions of arms/legs.Symptomatic treatment Right shoulder rotator cuff injury. Defer to orthopedics RESP: aggressive pulmonary toilette, nasotracheal suction, and breathing treatments with nebulizers. PT eval Nutrition. Tolerating Oral diet Renal. monitor closely urine output, BUN and creatinine Endocrine. Monitor serial Acu checks and SSI as needed in detail ID monitor for signs of infection Protonix for stress ulcer prophylaxis Frederick de guzman and SCD's for DVT prophylaxis Rufino Zarate MD May 29, 2017 21:40
[2017-05-30] VITALS (7 sets, daily range): BP systolic 117–210; BP diastolic 62–91; PULSE 66–83; RESP 16–18; TEMP 97.6–98.5; O2SAT 95–98
[2017-05-30] MEDS: LEVOTHYROXINE SODIUM 100 MCG TAB PO SCH (05:54)
[2017-05-30] MEDS: INSULIN ASPART SUPPLEMENTAL SCALE SQ SCH ×4 (06:18→21:00)
[2017-05-30] MEDS: DOCUSATE SODIUM 100 MG CAP PO SCH ×2 (08:08→21:44)
[2017-05-30] MEDS: amLODIPine BESYLATE 5 MG TAB PO SCH (08:08)
[2017-05-30] MEDS: ASPIRIN 81 MG CHEW TAB CHEW SCH (08:08)
[2017-05-30] MEDS: TRIAMTERENE/HCTZ 37.5 MG/25 MG CAP PO SCH (08:13)
[2017-05-30] MEDS: cloNIDine HCL 0.1 MG TAB PO PRN (08:13)
--- NOTE | 2017-05-30 14:04 | HM ---
Date Performed: 05/28/2017 Time Performed: 16:06:00 HOOKUP DATE: 05/28/17 04:06:00 PM Tue ANALYSIS START TIME: 05/28/2017 4:11:00 PM ANALYSIS END TIME: 05/29/2017 4:15:00 PM PATIENT AGE: 76 PATIENT HEIGHT PATIENT WEIGHT DRUG LIST PATIENT DIAGNOSIS TEST NARRATIVE: The patient's average heart rate was 71 BPM. No episodes of tachycardia wer e noted. No episodes of bradycardia were noted. No pauses exceeding 2.0 seconds were noted. 173 ventricular ectopics, which represented < 1% of the total beat count, were noted. The highest ve ntricular ectopic frequency occurred from 11:00 AM to 12:00 PM Wed. During this time 18 VE(s) occurr ed. Ventricular ectopics were observed as 173 isolated beat(s) only. No couplets or runs were noted . 93 supraventricular ectopics, which represented < 1% of the total beat count, were noted. The highest supraventricular ectopic frequency occurred from 07:00 AM to 08:00 AM Wed. During this time 10 SVE(s) occurred. No episodes of ST depression (defined as -1.0 mm or more) were noted in chann el 1. No episodes of ST depression (defined as -1.0 mm or more) were noted in channel 2. No episode s of ST depression (defined as -1.0 mm or more) were noted in channel 3. NO DIARY MAINTAINED TEST INTERPRETATION: Sinus rhythm Rare to occasional PACs and one short atrial run no atrial fibrillation Signed by : Polo Weaver
--- NOTE | 2017-05-30 14:16 | HHI.PR ---
Subjective Remarks Patient reports feeling better today She feels that she can raise her right arm a bit better today Does not appear confused- patient's visitors in the room feel as though she is back to her baseline mentally Objective Vitals Vital Signs Date Time Temp Pulse Resp B/P (MAP) Pulse Ox O2 Delivery O2 Flow Rate FiO2 05/30/17 04:00 97.9 67 18 117/62 (80) 96 05/29/17 20:00 97.6 72 18 226/122 (156) 95 05/29/17 18:00 71 Result Diagram: 05/29/17 0546 05/29/17 0546 Other Results Laboratory Tests Test 05/27/17 20:34 05/29/17 05:46 Potassium Level 3.3 MEQ/L 3.5 MEQ/L Vitamin B12 Level 401 PG/ML Rapid Plasma Reagin NON-REACTIVE White Blood Count 7.4 TH/MM3 Red Blood Count 3.73 MIL/MM3 Hemoglobin 11.2 GM/DL Hematocrit 32.8 % Mean Corpuscular Volume 88.1 FL Mean Corpuscular Hemoglobin 30.0 PG Mean Corpuscular Hemoglobin Concent 34.1 % Red Cell Distribution Width 14.9 % Platelet Count 288 TH/MM3 Mean Platelet Volume 7.9 FL Neutrophils (%) (Auto) 71.3 % Lymphocytes (%) (Auto) 17.7 % Monocytes (%) (Auto) 8.1 % Eosinophils (%) (Auto) 1.8 % Basophils (%) (Auto) 1.1 % Neutrophils # (Auto) 5.3 TH/MM3 Lymphocytes # (Auto) 1.3 TH/MM3 Monocytes # (Auto) 0.6 TH/MM3 Eosinophils # (Auto) 0.1 TH/MM3 Basophils # (Auto) 0.1 TH/MM3 CBC Comment DIFF FINAL Differential Comment Blood Urea Nitrogen 9 MG/DL Creatinine 0.54 MG/DL Random Glucose 187 MG/DL Calcium Level 8.0 MG/DL Magnesium Level 1.9 MG/DL Sodium Level 136 MEQ/L Chloride Level 103 MEQ/L Carbon Dioxide Level 25.4 MEQ/L Anion Gap 8 MEQ/L Estimat Glomerular Filtration Rate 110 ML/MIN Total Creatine Kinase 408 U/L Creatine Kinase MB 3.6 NG/ML Creatine Kinase MB % 0.9 % Imaging Last Impressions Shoulder MRI 05/28/17 0000 Signed Impressions: Service Date/Time: Sunday, May 28, 2017 10:04 - CONCLUSION: 1. Large full-thickness tear of the supraspinatus tendon with features of chronicity. 2. No acute fractures identified. Muscle edema involving the infraspinatus characteristic of contusion Jose J Edmond MD Cervical Spine MRI 05/28/17 Signed Impressions: Service Date/Time: Sunday, May 28, 2017 09:49 - CONCLUSION: 1. Syrinx. 2. Multilevel degenerative changes with areas of impression upon the cord as well as neural foraminal narrowing as detailed at each level in the above discussion. 3. Anterolisthesis of C6 on C7. 4. Fusion of T1 and T2. Santi Marrero Jr., MD Head CT 05/26/1735 Signed Impressions: Service Date/Time: Friday, May 26, 2017 10:04 - CONCLUSION: No acute disease. Hermelinda Edwards MD Chest X-Ray 05/26/1735 Signed Impressions: Service Date/Time: Friday, May 26, 2017 09:51 - CONCLUSION: Significant hypoinflation of the lungs. The enlargement of cardiac silhouette and prominence of the pulmonary vasculature may be secondary to portable technique versus congestive heart failure and pulmonary edema. Recommend upright PA and lateral views when clinically able. Hermelinda Edwards MD Knee X-Ray 05/26/17 Signed Impressions: Service Date/Time: Friday, May 26, 2017 09:56 - CONCLUSION: Focal soft tissue overlying the patella which may represent an area of focal or situs or hematoma. Hermelinda Edwards MD Humerus X-Ray 05/26/17 Signed Impressions: Service Date/Time: Friday, May 26, 2017 09:52 - CONCLUSION: Unremarkable examination of the right humerus. Hermelinda Edwards MD Head Magnetic Resonance Angiography 05/26/17 Signed Impressions: Service Date/Time: Friday, May 26, 2017 19:02 - CONCLUSION: 1. Limited examination due to patient motion. 2. Poor visualization of the distal branches of the right middle cerebral artery raising the possibility of severe stenosis of this vessel although no acute infarct is identified on the accompanying MRI of the brain done the same day. Clinical correlation is recommended. Kevin Jay MD Carotid Artery Ultrasound 05/26/17 Signed Impressions: Service Date/Time: Friday, May 26, 2017 17:43 - CONCLUSION: No hemodynamically significant stenosis. Kevin Jay MD Brain MRI 05/26/17 0000 Signed Impressions: Service Date/Time: Friday, May 26, 2017 19:02 - CONCLUSION: 1. Mild periventricular white matter small vessel ischemic changes bilaterally. 2. No acute infarct, acute hemorrhage, mass effect, or extra-axial fluid collection. 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 - Family reports that she has been having recurrent but intermittent falls since February 2017 and seems to have been having some forgetfulness and general decline. Prior to her falls in February she had been very independent, driving herself and managing her own household. - Labs at admission revealed rhabdomyolysis from falls/lying on floor, mild hyponatremia and mild dehydration. - On examination she has multiple contusions of the arms/legs - Head CT (05/26) --> No acute disease. - MRI Brain (05/26) --> Mild periventricular white matter small vessel ischemic changes bilaterally. No acute infarct, acute hemorrhage, mass effect, or extra-axial fluid collection. - MRA Brain (05/26) --> Limited examination due to patient motion. Poor visualization of the distal branches of the right middle cerebral artery raising the possibility of severe stenosis of this vessel although no acute infarct is identified on the accompanying MRI of the brain done the same day. - Carotid US (05/26) --> No hemodynamically significant stenosis - Telemetry with some runs of atrial tachycardia noted - Holter --> Completed at 1600 05/29/17, results pending.- discussed with Dr. Weaver - 2D echo --> Mild concentric LVH, estimated EF 55%, grade 1 diastolic dysfunction, LA yvds-wx-yutcyniroc dilated, jqlej-wo-lhjj mitral valve regurgitation, moderate mitral annular calcification - FLP --> Triglycerides 162, Total cholesterol 146, LDL 72, HDL 42 - HgbA1C is 7.1% - Pts BP medications were initially held for permissive HTN her home BP meds were resumed. (Pt is normally on Norvasc 5mg daily, Triamterene/HCTZ 37.5/25 po daily) - now with episodes of hypertension also complaining of bilateral lower extremity edema - will DC Norvasc and start Procardia XL 60 mg by mouth daily - Appreciate consult from Neurology- recommend aspirin and statin - EEG (05/28) --> Abnormal due to some mild slowing, may be due to some mild encephalopathy - Cervical Spine MRI (05/28) --> Syrinx. Multilevel degenerative changes with areas of impression upon the cord as well as neural foraminal narrowing. Anterolisthesis of C6 on C7. Fusion of T1 and T2. - MRI of the right shoulder (05/28) -->Large full-thickness tear of the supraspinatus tendon with features of chronicity. No acute fractures identified. Muscle edema involving the infraspinatus characteristic of contusion - Neurosurgery also following - She will need outpt followup with Orthopedic Surgery for the right rotator cuff tear. - ASA/statin daily - PT/OT/ST - f/u with Neurology outpt - appreciate input from Neurosurgery. NO surgical intervention at this time - f/u with Dr. Zarate outpt - will need [facility] and home PT upon discharge - DVT prophylaxis with SCDs (2) Rhabdomyolysis ICD Codes: M62.82 - Rhabdomyolysis Status: Acute Plan: - Labs at admission with total CK 2350/CK-MB 16.8 - Pt has been receiving IVF - Repeat labs on 05/27 with CK 2754/CK-MB 10.2 - Repeat labs on 05/29 with CK 408/CK-MB 3.6 - recheck labs in AM (3) Hypokalemia ICD Codes: E87.6 - Hypokalemia Plan: - Replaced, improved - Monitor labs (4) Hyponatremia ICD Codes: E87.1 - Hypo-osmolality and hyponatremia Status: Acute Plan: - Repeat labs 05/29 with Na+ 136 - Encourage oral intake - Monitor, recheck labs in AM (5) Hypothyroid ICD Codes: E03.9 - Hypothyroidism, unspecified Status: Chronic Plan: - Home meds continued (6) HTN (hypertension) ICD Codes: I10 - Essential (primary) hypertension Status: Chronic Plan: - DC Norvasc started on Procardia XL 60 mg by mouth daily - Clonidine PRN (7) DM type 2 (diabetes mellitus, type 2) ICD Codes: E11.9 - Type 2 diabetes mellitus without complications Status: Chronic Plan: - Resume home glimepiride 1 mg PO daily restarted - NovoLog SSI - continue to monitor Accu checks Assessment and Plan Patient examined. Assessment and plan formulated with Leatha Sparks PA-C. I agree with the above. Leatha Sparks May 30, 2017 14:15 Gilmar Murillo DO Jun 01, 2017 00:47
--- NOTE | 2017-05-30 17:11 | HHI.NSPN ---
Note Status Status: Progress Note Interval History Diagnosis TIA, cervical stenosis Interval History This is 76 female with history of arterial hypertension, diabetes mellitus, hyperlipidemia brought to the emergency department after being found down. Her daughter and grand daughter provided her history. Apparently she lives in [facility] and she is very funtional. . She drives a car and is able to ambulate normally to the grocery store. Last weekend she fell and was seen by her pcp and had xray on her leg and arm. Apparently 3 days ago she had another fall. she was found lying on the floor. The helped her to a chair and when she arrived her pt had expressive aphasia and rue weakness. No seizure activity reported. No tongue biting. No incontinence of stool or urine. She underwent CT head which was negative. 05/29. Neurological condition has improved. she has developed supraventricular arrythmia 05/30. Neck feels better. mental status to baseline. Telemetry with some runs of atrial tachycardia noted Labs, Micro, & Vital Signs Results Date Time Temp Pulse Resp B/P (MAP) Pulse Ox O2 Delivery O2 Flow Rate FiO2 05/30/17 04:00 97.9 67 18 117/62 (80) 96 05/29/17 20:00 97.6 72 18 226/122 (156) 95 05/29/17 18:00 71 Constitutional Vital Signs Date Time Temp Pulse Resp B/P (MAP) Pulse Ox O2 Delivery O2 Flow Rate FiO2 05/30/17 04:00 97.9 67 18 117/62 (80) 96 05/29/17 20:00 97.6 72 18 226/122 (156) 95 05/29/17 18:00 71 Physical Exam Ms Monet is alert, awake and oriented to time, place and person. Speech is fluent. Higher cognitive functions are normal. She has extensive bruising in both knees and the right shoulder. Cranial nerve examination demonstrates the pupils to be equal, round, and reactive to light. Extra-ocular movements are intact. Facial motor and sensory function are normal and symmetrical. Gross hearing is intact, bilaterally. The uvula is midline and elevates symmetrically with the soft palate. Sternocleidomastoid and trapezius muscles have normal and symmetrical strength. Other cranial nerves are intact. Neck is soft and supple. Cervical spine has a decreased range of motion in anterior flexion, extension, lateral bending, and rotation with mild pain Muscle testing reveals normal bulk and tone overall without rigidity, spasticity , fasciculations, or atrophy. The right arm abduction is significantly impaired due to pain. Muscle strength is 5/5 in all muscle groups of both upper extremities including deltoid, biceps, triceps, brachioradialis, wrist extension and dinkey operator slate. In the lower extremities, strength is 5/5 in both iliopsoas , quadriceps, hamstrings, plantar flexion, dorsiflexion, and extensor hallicus longus. Sensory examination is intact to light touch and sharp/dull discrimination in both the upper and lower extremities, symmetrically. Deep tendon reflexes are 2+ and symmetrical in the biceps, triceps, and brachioradialis, bilaterally, in the upper extremities. In the lower extremities , the patellar and Achilles are 2+, bilaterally. There is a bilateral plantar flexion response. Hoffmanns sign is negative. There is no clonus or other abnormal reflexes noted. Cerebellar examination is intact to [id number] test, rapid rhythmic alternating motion. There is no dysmetria, dysdiadochokinesia, truncal ataxia, or tremor. Medications Current Medications Current Medications Sodium Chloride (NS Flush) 2 ml UNSCH PRN IVF FLUSH AFTER USING IV ACCESS Last administered on 05/27/17 09:19; Start 05/26/17 at 09:45 Aspirin (Aspirin Supp) 300 mg ONCE ONCE RECTAL Last administered on 05/26/17 10:57; Start 05/26/17 at 10:45; Stop 05/26/17 at 10:46; Status DC Sodium Chloride 1,000 ml @ 70 mls/hr [id number] IV Last administered on 16:51; Start 05/26/17 at 12:15; Stop 05/28/17 at 16:44; Status DC Aspirin (Aspirin Chew) 81 mg DAILY CHEW Last administered on 05/30/17 08:08; Start 05/27/17 at 09:00 Atorvastatin Calcium (Lipitor) 40 mg HS PO Last administered on 05/29/17 20:42 ; Start 05/26/17 at 21:00 Levothyroxine Sodium (Synthroid) 100 mcg DAILY@0600 PO Last administered on 05:54; Start 05/27/17 at 06:00 Lorazepam (Ativan) 1 mg BID PRN PO ANXIETY Last administered on 05/28/17 08:48 ; Start 05/26/17 at 15:45 Insulin Aspart (NovoLOG SUPPLEMENTAL SCALE) 1 ACHS SLIDING SCALE SQ Last administered on 05/30/17 12:34; Start 05/26/17 at 16:00 Enalaprilat (Vasotec Inj) 1.25 mg Q6H PRN IV PUSH SBP > 220 Last administered on 05/29/17 20:43; Start 05/26/17 at 15:45 Dextrose (D50w (Vial) Inj) 50 ml UNSCH PRN IV PUSH HYPOGLYCEMIA - SEE COMMENTS ; Start 05/26/17 at 16:00 Glucagon (Glucagon Inj) 1 mg UNSCH PRN OTHER HYPOGLYCEMIA-SEE COMMENTS; Start 05/26/17 at 16:00 Potassium Chloride (KCl) 40 meq Q4H PO Last administered on 05/27/17 17:00; Start 05/27/17 at 13:00; Stop 05/27/17 at 17:01; Status DC Acetaminophen (Tylenol) 650 mg Q6H PRN PO pain 1-5 Last administered on 14:19; Start 05/27/17 at 12:30 Acetaminophen/ Hydrocodone Bitart ([place] 5-325 Mg) 1 tab Q6H PRN PO pain 6-10 Last administered on 05/27/17 13:56; Start 05/27/17 at 12:30 Lorazepam (Ativan) 1 mg ONCE ONCE PO Last administered on 05/27/17 16:15; Start 05/27/17 at 16:15; Stop 05/27/17 at 16:42; Status DC Amlodipine Besylate (Norvasc) 5 mg DAILY PO Last administered on 05/30/17 08: 08; Start 05/28/17 at 16:45; Stop 05/30/17 at 14:37; Status DC Triamterene/HCTZ (Dyazide 37.5-25 Mg) 1 cap DAILY PO Last administered on 08:13; Start 05/28/17 at 16:45 Potassium Chloride (KCl) 40 meq ONCE ONCE PO Last administered on 05/28/17 17 :41; Start 05/28/17 at 16:45; Stop 05/28/17 at 17:02; Status DC Clonidine (Catapres) 0.1 mg Q6H PRN PO SBP> OR = 180, DBP> OR = 100 Last administered on 05/30/17 08:13; Start 05/28/17 at 17:00 Sodium Chloride 1,000 ml @ 70 mls/hr [id number] IV Last administered on 17:15; Start 05/28/17 at 17:15; Stop 05/29/17 at 10:26; Status DC Docusate Sodium (Colace) 100 mg BID PO Last administered on 05/30/17 08:08; Start 05/28/17 at 21:00 Polyethylene Glycol (Miralax) 17 gm DAILY PRN PO constipation; Start 05/28/17 at 17:15 Glimepiride (Amaryl) 1 mg DAILY PO ; Start 05/31/17 at 09:00 Nifedipine (Procardia Xl) 60 mg DAILY PO ; Start 05/30/17 at 14:45 Attending Statement Telemetry with some runs of atrial tachycardia noted. Cardiology evaluation in progress. Holter --> Completed at 1600 05/29/17, results pending. Continue neuro checks, I again discussed with her the alternative methods of treatment. She does not want any surgery to her cervical spine and wants to continue conservative treatment. Rhabdomyolysis Continue IV hydration Mild hyponatremia mild dehydration. Resolved. Follow up BMP multiple contusions of arms/legs.Symptomatic treatment Right shoulder rotator cuff injury. Defer to orthopedics RESP: aggressive pulmonary toilette, nasotracheal suction, and breathing treatments with nebulizers. PT eval Nutrition. Tolerating Oral diet Renal. monitor closely urine output, BUN and creatinine Endocrine. Monitor serial Acu checks and SSI as needed in detail ID monitor for signs of infection Protonix for stress ulcer prophylaxis Frederick de guzman and SCD's for DVT prophylaxis Rufino Zarate MD May 30, 2017 17:11
[2017-05-30] MEDS: ACETAMINOPHEN 325 MG TAB PO PRN (17:25)
[2017-05-30] MEDS: NIFEdipine 60 MG SUSTAINED RELEASE TAB PO SCH (17:25)
[2017-05-30] MEDS: ATORVASTATIN 40 MG TAB PO SCH (21:44)
[2017-05-31] VITALS (9 sets, daily range): BP systolic 131–215; BP diastolic 58–98; PULSE 67–87; RESP 17–18; TEMP 97–99; O2SAT 18–97
[2017-05-31] MEDS: LEVOTHYROXINE SODIUM 100 MCG TAB PO SCH (05:41)
[2017-05-31] MEDS: INSULIN ASPART SUPPLEMENTAL SCALE SQ SCH ×4 (06:03→20:37)
[2017-05-31] MEDS: GLIMEPIRIDE 1 MG TAB PO SCH (08:28)
[2017-05-31] MEDS: ASPIRIN 81 MG CHEW TAB CHEW SCH (08:28)
[2017-05-31] MEDS: DOCUSATE SODIUM 100 MG CAP PO SCH ×2 (08:31→20:30)
[2017-05-31] MEDS: TRIAMTERENE/HCTZ 37.5 MG/25 MG CAP PO SCH (08:32)
[2017-05-31] MEDS: NIFEdipine 60 MG SUSTAINED RELEASE TAB PO SCH (09:00)
[2017-05-31] MEDS ORDERED: NIFEdipine 30 MG SUSTAINED RELEASE TAB PO SCH (10:15)
--- NOTE | 2017-05-31 12:45 | HHI.NSPN ---
Note Status Status: Progress Note Interval History Diagnosis TIA, cervical stenosis Interval History This is 76 female with history of arterial hypertension, diabetes mellitus, hyperlipidemia brought to the emergency department after being found down. Her daughter and grand daughter provided her history. Apparently she lives in [facility] and she is very funtional. . She drives a car and is able to ambulate normally to the grocery store. Last weekend she fell and was seen by her pcp and had xray on her leg and arm. Apparently 3 days ago she had another fall. she was found lying on the floor. The helped her to a chair and when she arrived her pt had expressive aphasia and rue weakness. No seizure activity reported. No tongue biting. No incontinence of stool or urine. She underwent CT head which was negative. 05/29. Neurological condition has improved. she has developed supraventricular arrythmia 05/30. Neck feels better. mental status to baseline. Telemetry with some runs of atrial tachycardia noted 05/31. feels well. No new issues Labs, Micro, & Vital Signs Results Date Time Temp Pulse Resp B/P (MAP) Pulse Ox O2 Delivery O2 Flow Rate FiO2 05/31/17 10:00 172/88 (116) 05/31/17 08:02 69 05/31/17 08:00 99.0 74 18 131/58 (82) 97 05/31/17 04:00 97.6 67 18 215/90 (131) 18 05/30/17 20:00 98.5 76 18 210/88 (128) 95 05/30/17 16:00 97.8 78 18 180/79 (112) 98 05/30/17 14:00 196/91 (126) Constitutional Vital Signs Date Time Temp Pulse Resp B/P (MAP) Pulse Ox O2 Delivery O2 Flow Rate FiO2 05/31/17 10:00 172/88 (116) 05/31/17 08:02 69 05/31/17 08:00 99.0 74 18 131/58 (82) 97 05/31/17 04:00 97.6 67 18 215/90 (131) 18 05/30/17 20:00 98.5 76 18 210/88 (128) 95 05/30/17 16:00 97.8 78 18 180/79 (112) 98 05/30/17 14:00 196/91 (126) Physical Exam Ms Monet is alert, awake and oriented to time, place and person. Speech is fluent. Higher cognitive functions are normal. She has extensive bruising in both knees and the right shoulder. Cranial nerve examination demonstrates the pupils to be equal, round, and reactive to light. Extra-ocular movements are intact. Facial motor and sensory function are normal and symmetrical. Gross hearing is intact, bilaterally. The uvula is midline and elevates symmetrically with the soft palate. Sternocleidomastoid and trapezius muscles have normal and symmetrical strength. Other cranial nerves are intact. Neck is soft and supple. Cervical spine has a decreased range of motion in anterior flexion, extension, lateral bending, and rotation with mild pain Muscle testing reveals normal bulk and tone overall without rigidity, spasticity , fasciculations, or atrophy. The right arm abduction is significantly impaired due to pain. Muscle strength is 5/5 in all muscle groups of both upper extremities including deltoid, biceps, triceps, brachioradialis, wrist extension and websphere architect. In the lower extremities, strength is 5/5 in both iliopsoas , quadriceps, hamstrings, plantar flexion, dorsiflexion, and extensor hallicus longus. Sensory examination is intact to light touch and sharp/dull discrimination in both the upper and lower extremities, symmetrically. Deep tendon reflexes are 2+ and symmetrical in the biceps, triceps, and brachioradialis, bilaterally, in the upper extremities. In the lower extremities , the patellar and Achilles are 2+, bilaterally. There is a bilateral plantar flexion response. Hoffmanns sign is negative. There is no clonus or other abnormal reflexes noted. Cerebellar examination is intact to [id number] test, rapid rhythmic alternating motion. There is no dysmetria, dysdiadochokinesia, truncal ataxia, or tremor. Medications Current Medications Current Medications Sodium Chloride (NS Flush) 2 ml UNSCH PRN IVF FLUSH AFTER USING IV ACCESS Last administered on 05/27/17 09:19; Start 05/26/17 at 09:45 Aspirin (Aspirin Supp) 300 mg ONCE ONCE RECTAL Last administered on 05/26/17 10:57; Start 05/26/17 at 10:45; Stop 05/26/17 at 10:46; Status DC Sodium Chloride 1,000 ml @ 70 mls/hr [id number] IV Last administered on 16:51; Start 05/26/17 at 12:15; Stop 05/28/17 at 16:44; Status DC Aspirin (Aspirin Chew) 81 mg DAILY CHEW Last administered on 05/31/17 08:28; Start 05/27/17 at 09:00 Atorvastatin Calcium (Lipitor) 40 mg HS PO Last administered on 05/30/17 21:44 ; Start 05/26/17 at 21:00 Levothyroxine Sodium (Synthroid) 100 mcg DAILY@0600 PO Last administered on 05/31 05:41; Start 05/27/17 at 06:00 Lorazepam (Ativan) 1 mg BID PRN PO ANXIETY Last administered on 05/28/17 08:48 ; Start 05/26/17 at 15:45 Insulin Aspart (NovoLOG SUPPLEMENTAL SCALE) 1 ACHS SLIDING SCALE SQ Last administered on 05/31/17 11:33; Start 05/26/17 at 16:00 Enalaprilat (Vasotec Inj) 1.25 mg Q6H PRN IV PUSH SBP > 220 Last administered on 05/29/17 20:43; Start 05/26/17 at 15:45 Dextrose (D50w (Vial) Inj) 50 ml UNSCH PRN IV PUSH HYPOGLYCEMIA - SEE COMMENTS ; Start 05/26/17 at 16:00 Glucagon (Glucagon Inj) 1 mg UNSCH PRN OTHER HYPOGLYCEMIA-SEE COMMENTS; Start 05/26/17 at 16:00 Potassium Chloride (KCl) 40 meq Q4H PO Last administered on 05/27/17 17:00; Start 05/27/17 at 13:00; Stop 05/27/17 at 17:01; Status DC Acetaminophen (Tylenol) 650 mg Q6H PRN PO pain 1-5 Last administered on 17:25; Start 05/27/17 at 12:30 Acetaminophen/ Hydrocodone Bitart ([place] 5-325 Mg) 1 tab Q6H PRN PO pain 6-10 Last administered on 05/27/17 13:56; Start 05/27/17 at 12:30 Lorazepam (Ativan) 1 mg ONCE ONCE PO Last administered on 05/27/17 16:15; Start 05/27/17 at 16:15; Stop 05/27/17 at 16:42; Status DC Amlodipine Besylate (Norvasc) 5 mg DAILY PO Last administered on 05/30/17 08: 08; Start 05/28/17 at 16:45; Stop 05/30/17 at 14:37; Status DC Triamterene/HCTZ (Dyazide 37.5-25 Mg) 1 cap DAILY PO Last administered on 08:32; Start 05/28/17 at 16:45 Potassium Chloride (KCl) 40 meq ONCE ONCE PO Last administered on 05/28/17 17 :41; Start 05/28/17 at 16:45; Stop 05/28/17 at 17:02; Status DC Clonidine (Catapres) 0.1 mg Q6H PRN PO SBP> OR = 180, DBP> OR = 100 Last administered on 05/30/17 08:13; Start 05/28/17 at 17:00 Sodium Chloride 1,000 ml @ 70 mls/hr [id number] IV Last administered on 17:15; Start 05/28/17 at 17:15; Stop 05/29/17 at 10:26; Status DC Docusate Sodium (Colace) 100 mg BID PO Last administered on 05/30/17 21:44; Start 05/28/17 at 21:00 Polyethylene Glycol (Miralax) 17 gm DAILY PRN PO constipation; Start 05/28/17 at 17:15 Glimepiride (Amaryl) 1 mg DAILY PO Last administered on 05/31/17 08:28; Start 05/31/17 at 09:00 Nifedipine (Procardia Xl) 60 mg DAILY PO Last administered on 05/30/17 17:25; Start 05/30/17 at 14:45; Stop 05/31/17 at 10:08; Status DC Nifedipine (Procardia Xl) 60 mg DAILY PO Last administered on 05/31/17 11:32; Start 05/31/17 at 10:15 Attending Statement neuro checks. Stable for discharge home. WIll follow up as outpatient Rhabdomyolysis Continue IV hydration Mild hyponatremia mild dehydration. Resolved. Follow up BMP multiple contusions of arms/legs.Symptomatic treatment Right shoulder rotator cuff injury. Defer to orthopedics RESP: aggressive pulmonary toilette, nasotracheal suction, and breathing treatments with nebulizers. PT eval Nutrition. Tolerating Oral diet Renal. monitor closely urine output, BUN and creatinine Endocrine. Monitor serial Acu checks and SSI as needed in detail ID monitor for signs of infection Protonix for stress ulcer prophylaxis Frederick hose and SCD's for DVT prophylaxis Rufino Zarate MD May 31, 2017 12:45
--- NOTE | 2017-05-31 12:56 | HHI.FF ---
Face to Face Verification Diagnosis: (1) TIA (transient ischemic attack) (2) Recurrent falls (3) Hypokalemia (4) Hypothyroid (5) DM type 2 (diabetes mellitus, type 2) (6) HTN (hypertension) (7) Rhabdomyolysis (8) Hyponatremia Physical Therapy Order: Evaluate and Treat, Improve ambulation, Strength and gait training Speech Therapy Order: To Improve: Speech and communication skills, Cognitive skills Home Health Nursing Order: Medical education Nursing assessment with vital signs I have seen patient Kate Monet on 05/31/17. My clinical findings support the need for the requested home health care services because: Deconditioned w/ increased weakness High risk of falls I certify that my clinical findings support that this patient is homebound because: Unsteady gait/balance Do Sylvester May 31, 2017 12:56 Gilmar Murillo DO Jun 01, 2017 00:50
--- NOTE | 2017-05-31 15:12 | HHI.PR ---
Subjective Remarks Pt overall feeling better but her BP is consistently elevated today Denies any headache Still with some cognitive speech deficits Objective Vitals Vital Signs Date Time Temp Pulse Resp B/P (MAP) Pulse Ox O2 Delivery O2 Flow Rate FiO2 05/31/17 14:45 180/84 (116) 05/31/17 13:00 186/98 (127) 05/31/17 12:00 97.8 75 18 215/98 (137) 97 05/31/17 10:00 172/88 (116) 05/31/17 08:02 69 05/31/17 08:00 99.0 74 18 131/58 (82) 97 05/31/17 04:00 97.6 67 18 215/90 (131) 18 05/30/17 20:00 98.5 76 18 210/88 (128) 95 05/30/17 16:00 97.8 78 18 180/79 (112) 98 05/31/17 05/31/17 06/01/17 14:59 22:59 06:59 # Bowel Movements 1 Result Diagram: 05/29/17 0546 05/29/17 0546 Imaging Last Impressions Shoulder MRI 05/28/17 0000 Signed Impressions: Service Date/Time: Sunday, May 28, 2017 10:04 - CONCLUSION: 1. Large full-thickness tear of the supraspinatus tendon with features of chronicity. 2. No acute fractures identified. Muscle edema involving the infraspinatus characteristic of contusion Jose J Edmond MD Cervical Spine MRI 05/28/17 0000 Signed Impressions: Service Date/Time: Sunday, May 28, 2017 09:49 - CONCLUSION: 1. Syrinx. 2. Multilevel degenerative changes with areas of impression upon the cord as well as neural foraminal narrowing as detailed at each level in the above discussion. 3. Anterolisthesis of C6 on C7. 4. Fusion of T1 and T2. Santi Marrero Jr., MD Head CT 05/26/1735 Signed Impressions: Service Date/Time: Friday, May 26, 2017 10:04 - CONCLUSION: No acute disease. Hermelinda Edwards MD Chest X-Ray 05/26/1735 Signed Impressions: Service Date/Time: Friday, May 26, 2017 09:51 - CONCLUSION: Significant hypoinflation of the lungs. The enlargement of cardiac silhouette and prominence of the pulmonary vasculature may be secondary to portable technique versus congestive heart failure and pulmonary edema. Recommend upright PA and lateral views when clinically able. Hermelinda Edwards MD Knee X-Ray 05/26/17 0000 Signed Impressions: Service Date/Time: Friday, May 26, 2017 09:56 - CONCLUSION: Focal soft tissue overlying the patella which may represent an area of focal or situs or hematoma. Hermelinda Edwards MD Humerus X-Ray 05/26/17 Signed Impressions: Service Date/Time: Friday, May 26, 2017 09:52 - CONCLUSION: Unremarkable examination of the right humerus. Hermelinda Edwards MD Head Magnetic Resonance Angiography 05/26/17 0000 Signed Impressions: Service Date/Time: Friday, May 26, 2017 19:02 - CONCLUSION: 1. Limited examination due to patient motion. 2. Poor visualization of the distal branches of the right middle cerebral artery raising the possibility of severe stenosis of this vessel although no acute infarct is identified on the accompanying MRI of the brain done the same day. Clinical correlation is recommended. Kevin Jay MD Carotid Artery Ultrasound 05/26/17 0000 Signed Impressions: Service Date/Time: Friday, May 26, 2017 17:43 - CONCLUSION: No hemodynamically significant stenosis. Kevin Jay MD Brain MRI 05/26/17 0000 Signed Impressions: Service Date/Time: Friday, May 26, 2017 19:02 - CONCLUSION: 1. Mild periventricular white matter small vessel ischemic changes bilaterally. 2. No acute infarct, acute hemorrhage, mass effect, or extra-axial fluid collection. Kevin Jay MD Objective Remarks General: NAD, Awake, alert Chest: CTA Cardiac: Regular Abd: +BS, soft ND/NT Ext: Multiple areas of ecchymoses on the UE and LE, pt has difficulty with abducting or lifting the RUE but improving Neuro: Speech clear but some cognitive speech deficits, equal court recorder strength in the hands A/P Problem List: (1) Recurrent falls ICD Codes: R29.6 - Repeated falls Plan: - Pt is 76 yo with DM-2 and HTN who presented to the ED with expressive aphasia/ rue weakness - Pt was initially thought to have had an acute CVA but now this is not clearly the case. - Family reports that she has been having recurrent but intermittent falls since February 2017 and seems to have been having some forgetfulness and general decline. Prior to her falls in February she had been very independent, driving herself and managing her own household. - Labs at admission revealed rhabdomyolysis from falls/lying on floor, mild hyponatremia and mild dehydration. - On examination she has multiple contusions of the arms/legs - Head CT (05/26) --> No acute disease. - MRI Brain (05/26) --> Mild periventricular white matter small vessel ischemic changes bilaterally. No acute infarct, acute hemorrhage, mass effect, or extra-axial fluid collection. - MRA Brain (05/26) --> Limited examination due to patient motion. Poor visualization of the distal branches of the right middle cerebral artery raising the possibility of severe stenosis of this vessel although no acute infarct is identified on the accompanying MRI of the brain done the same day. - Carotid US (05/26) --> No hemodynamically significant stenosis - Telemetry with some runs of atrial tachycardia noted - Holter --> Completed at 1600 05/29/17, results pending.- discussed with Dr. Weaver - 2D echo --> Mild concentric LVH, estimated EF 55%, grade 1 diastolic dysfunction, LA [id number] dilated, [id number] mitral valve regurgitation, moderate mitral annular calcification - FLP --> Triglycerides 162, Total cholesterol 146, LDL 72, HDL 42 - HgbA1C is 7.1% - Appreciate consult from Neurology- recommend aspirin and statin - EEG (05/28) --> Abnormal due to some mild slowing, may be due to some mild encephalopathy - Cervical Spine MRI (05/28) --> Syrinx. Multilevel degenerative changes with areas of impression upon the cord as well as neural foraminal narrowing. Anterolisthesis of C6 on C7. Fusion of T1 and T2. - MRI of the right shoulder (05/28) -->Large full-thickness tear of the supraspinatus tendon with features of chronicity. No acute fractures identified. Muscle edema involving the infraspinatus characteristic of contusion - Neurosurgery also following - She will need outpt followup with Orthopedic Surgery for the right rotator cuff tear. - ASA/statin daily - PT/OT/ST - f/u with Neurology outpt - appreciate input from Neurosurgery. NO surgical intervention at this time - f/u with Dr. Zarate outpt - will need HHC and home PT and ST upon discharge - DVT prophylaxis with SCDs (2) HTN (hypertension) ICD Codes: I10 - Essential (primary) hypertension Status: Chronic Plan: - Pts BP medications were initially held for permissive HTN her home BP meds were resumed. (Pt is normally on Norvasc 5mg daily, Triamterene/HCTZ 37.5/25 po daily) - Now with episodes of hypertension also complaining of bilateral lower extremity edema - Norvasc d/c on 05/30 and pt started on Procardia XL 60 mg by mouth daily but BP still continues to be significantly elevated. Will further increase to Procardia XL 60mg po BID. - Clonidine PRN (3) Rhabdomyolysis ICD Codes: M62.82 - Rhabdomyolysis Status: Acute Plan: - Labs at admission with total CK 2350/CK-MB 16.8 - Improved with IVF - Repeat labs on 05/27 with CK 2754/CK-MB 10.2 - Repeat labs on 05/29 with CK 408/CK-MB 3.6 (4) Hypokalemia ICD Codes: E87.6 - Hypokalemia Plan: - Replaced, improved - Monitor labs (5) Hyponatremia ICD Codes: E87.1 - Hypo-osmolality and hyponatremia Status: Acute Plan: - Repeat labs 05/29 with Na+ 136 - Encourage oral intake - Monitor, recheck labs in AM (6) Hypothyroid ICD Codes: E03.9 - Hypothyroidism, unspecified Status: Chronic Plan: - Home meds continued (7) DM type 2 (diabetes mellitus, type 2) ICD Codes: E11.9 - Type 2 diabetes mellitus without complications Status: Chronic Plan: - Resume home glimepiride 1 mg PO daily restarted - NovoLog SSI - continue to monitor Accu checks Assessment and Plan Patient examined. Assessment and plan formulated with Do LINDA-Vane. I agree with the above. - Will need improved BP control prior to safe discharge - continue dyazide - pt started on procardia XL 30mg, 2 tablets BID - observe BP control Do Sylvester May 31, 2017 15:12 Gilmar Murillo DO Jun 01, 2017 00:50
[2017-05-31] MEDS: NIFEdipine 30 MG SUSTAINED RELEASE TAB PO SCH (20:31)
[2017-05-31] MEDS: ATORVASTATIN 40 MG TAB PO SCH (20:31)
[2017-06-01] VITALS (7 sets, daily range): BP systolic 130–180; BP diastolic 58–64; PULSE 68–81; RESP 20; TEMP 97.5–98.4; O2SAT 95–96
[2017-06-01] MEDS: cloNIDine HCL 0.1 MG TAB PO PRN (05:18)
[2017-06-01] MEDS: LEVOTHYROXINE SODIUM 100 MCG TAB PO SCH (05:18)
[2017-06-01] MEDS: INSULIN ASPART SUPPLEMENTAL SCALE SQ SCH ×3 (06:23→16:16)
[2017-06-01] MEDS: NIFEdipine 30 MG SUSTAINED RELEASE TAB PO SCH (07:52)
[2017-06-01] MEDS: ASPIRIN 81 MG CHEW TAB CHEW SCH (07:52)
[2017-06-01] MEDS: TRIAMTERENE/HCTZ 37.5 MG/25 MG CAP PO SCH (07:53)
[2017-06-01] MEDS: GLIMEPIRIDE 1 MG TAB PO SCH (07:53)
[2017-06-01] MEDS: DOCUSATE SODIUM 100 MG CAP PO SCH (07:53)
--- NOTE | 2017-06-01 14:52 | HHI.FF ---
Face to Face Verification Diagnosis: (1) Recurrent falls (2) TIA (transient ischemic attack) (3) Rhabdomyolysis (4) HTN (hypertension) (5) DM type 2 (diabetes mellitus, type 2) Physical Therapy Order: Evaluate and Treat, Improve ambulation, Strength and gait training Occupational Therapy Order: Evaluate and Treat, Improve ADL, Gross motor coordination, Fine motor coordination Home Health Nursing Order: Medical education Signs/symptoms of disease process Medication education-adverse effect I have seen patient Kate Monet on 06/01/17. My clinical findings support the need for the requested home health care services because: Limited ability to care for self high fall risk Limited ability to care for self High risk of falls I certify that my clinical findings support that this patient is homebound because: Unsteady gait/balance Unsteady gait/balance Leatha Sparks Jun 01, 2017 14:52
[2017-06-01] MEDS ORDERED: METF1000 PO (15:04)
[2017-06-01] MEDS ORDERED: ASPI81CH25 CHEW (15:06)
[2017-06-01] MEDS ORDERED: GLIM1TAB PO (15:07)
[2017-06-01] MEDS ORDERED: NIFE1TAB85 PO (15:09)
--- NOTE | 2017-06-01 15:19 | HHI.DS ---
Discharge Summary Admission Date May 26, 2017 at 10:56 Discharge Date: Jun 01, 2017 Admitting Diagnosis CVA with expressive dysarthria, multiple hematomas (1) Recurrent falls ICD Codes: R29.6 - Repeated falls (2) HTN (hypertension) ICD Codes: I10 - Essential (primary) hypertension Status: Chronic (3) Rhabdomyolysis ICD Codes: M62.82 - Rhabdomyolysis Status: Acute (4) Hypokalemia ICD Codes: E87.6 - Hypokalemia (5) Hyponatremia ICD Codes: E87.1 - Hypo-osmolality and hyponatremia Status: Acute (6) Hypothyroid ICD Codes: E03.9 - Hypothyroidism, unspecified Status: Chronic (7) DM type 2 (diabetes mellitus, type 2) ICD Codes: E11.9 - Type 2 diabetes mellitus without complications Status: Chronic Consultants Dr. Shireen Zarate Procedures none Brief History Pt is 76 yo with dm 2, htn, hyperlipidemia who presents after being found down. Her daughter and grand daughter are here to help with history. Pt lives in [place] and is described to be very funtional. no assistive devices. She drives a car and is able to ambulate normally to grocery store. last weekend she fell and was seen by her pcp and had xray on her leg and arm by pcp per family. Then2 days ago she had another fall and daughter spent the night. But last night family called around 10pm and no answer. When they arrived this AM she was found lying on the floor. The helped her to a chair and when she arrived her pt had expressive aphasia and rue weakness. CT head negative. No tpa candidate. No afib hx per family. CBC/BMP: 05/29/17 0546 05/29/17 0546 Imaging Last Impressions Shoulder MRI 05/28/17 0000 Signed Impressions: Service Date/Time: Sunday, May 28, 2017 10:04 - CONCLUSION: 1. Large full-thickness tear of the supraspinatus tendon with features of chronicity. 2. No acute fractures identified. Muscle edema involving the infraspinatus characteristic of contusion Jose J Edmond MD Cervical Spine MRI 05/28/17 0000 Signed Impressions: Service Date/Time: Sunday, May 28, 2017 09:49 - CONCLUSION: 1. Syrinx. 2. Multilevel degenerative changes with areas of impression upon the cord as well as neural foraminal narrowing as detailed at each level in the above discussion. 3. Anterolisthesis of C6 on C7. 4. Fusion of T1 and T2. Santi Marrero Jr., MD Head CT 05/26/1735 Signed Impressions: Service Date/Time: Friday, May 26, 2017 10:04 - CONCLUSION: No acute disease. Hermelinda Edwards MD Chest X-Ray 05/26/17934 Signed Impressions: Service Date/Time: Friday, May 26, 2017 09:51 - CONCLUSION: Significant hypoinflation of the lungs. The enlargement of cardiac silhouette and prominence of the pulmonary vasculature may be secondary to portable technique versus congestive heart failure and pulmonary edema. Recommend upright PA and lateral views when clinically able. Hermelinda Edwards MD Knee X-Ray 05/26/17 Signed Impressions: Service Date/Time: Friday, May 26, 2017 09:56 - CONCLUSION: Focal soft tissue overlying the patella which may represent an area of focal or situs or hematoma. Hermelinda Edwards MD Humerus X-Ray 05/26/17 Signed Impressions: Service Date/Time: Friday, May 26, 2017 09:52 - CONCLUSION: Unremarkable examination of the right humerus. Hermelinda Edwards MD Head Magnetic Resonance Angiography 05/26/17 Signed Impressions: Service Date/Time: Friday, May 26, 2017 19:02 - CONCLUSION: 1. Limited examination due to patient motion. 2. Poor visualization of the distal branches of the right middle cerebral artery raising the possibility of severe stenosis of this vessel although no acute infarct is identified on the accompanying MRI of the brain done the same day. Clinical correlation is recommended. Kevin Jay MD Carotid Artery Ultrasound 05/26/17 Signed Impressions: Service Date/Time: Friday, May 26, 2017 17:43 - CONCLUSION: No hemodynamically significant stenosis. Kevin Jay MD Brain MRI 05/26/17 Signed Impressions: Service Date/Time: Friday, May 26, 2017 19:02 - CONCLUSION: 1. Mild periventricular white matter small vessel ischemic changes bilaterally. 2. No acute infarct, acute hemorrhage, mass effect, or extra-axial fluid collection. 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 - Family reports that she has been having recurrent but intermittent falls since February 2017 and seems to have been having some forgetfulness and general decline. Prior to her falls in February she had been very independent, driving herself and managing her own household. - Labs at admission revealed rhabdomyolysis from falls/lying on floor, mild hyponatremia and mild dehydration. - On examination she has multiple contusions of the arms/legs - Head CT (05/26) --> No acute disease. - MRI Brain (05/26) --> Mild periventricular white matter small vessel ischemic changes bilaterally. No acute infarct, acute hemorrhage, mass effect, or extra-axial fluid collection. - MRA Brain (05/26) --> Limited examination due to patient motion. Poor visualization of the distal branches of the right middle cerebral artery raising the possibility of severe stenosis of this vessel although no acute infarct is identified on the accompanying MRI of the brain done the same day. - Carotid US (05/26) --> No hemodynamically significant stenosis - Telemetry with some runs of atrial tachycardia noted - Holter --> Completed at 1600 05/29/17, results pending.- discussed with Dr. Weaver - 2D echo --> Mild concentric LVH, estimated EF 55%, grade 1 diastolic dysfunction, LA [id number] dilated, [id number] mitral valve regurgitation, moderate mitral annular calcification - FLP --> Triglycerides 162, Total cholesterol 146, LDL 72, HDL 42 - HgbA1C is 7.1% - Appreciate consult from Neurology- recommend aspirin and statin - EEG (05/28) --> Abnormal due to some mild slowing, may be due to some mild encephalopathy - Cervical Spine MRI (05/28) --> Syrinx. Multilevel degenerative changes with areas of impression upon the cord as well as neural foraminal narrowing. Anterolisthesis of C6 on C7. Fusion of T1 and T2. - MRI of the right shoulder (05/28) -->Large full-thickness tear of the supraspinatus tendon with features of chronicity. No acute fractures identified. Muscle edema involving the infraspinatus characteristic of contusion - Neurosurgery also following - She will need outpt followup with Orthopedic Surgery for the right rotator cuff tear. - ASA/statin daily - PT/OT/ST - f/u with Neurology outpt - appreciate input from Neurosurgery. NO surgical intervention at this time - f/u with Dr. Zarate outpt - will need [facility] and home PT and ST upon discharge - DVT prophylaxis with SCDs HTN (hypertension) - Pts BP medications were initially held for permissive HTN her home BP meds were resumed. (Pt is normally on Norvasc 5mg daily, Triamterene/HCTZ 37.5/25 po daily) - Now with episodes of hypertension also complaining of bilateral lower extremity edema - Norvasc d/c on 05/30 and pt started Start Procardia XL 60mg po BID, patient unable to swallow 60 mg tablet, but she is able to swallow 0 mg tablts- will prescribe 30mg 2 tablets - Clonidine PRN while in hospital Rhabdomyolysis - Labs at admission with total CK 2350/CK-MB 16.8 - Improved with IVF - Repeat labs on 05/27 with CK 2754/CK-MB 10.2 - Repeat labs on 05/29 with CK 408/CK-MB 3.6 Hypokalemia - Replaced, improved Hyponatremia - Repeat labs 05/29 with Na+ 136 - Encourage oral intake Hypothyroid - Home meds continued DM type 2 (diabetes mellitus, type 2) - Resume home glimepiride 1 mg PO BID and metformin 1000mg BID - NovoLog SSI while in hospital - continue to monitor Accu checks Pt Condition on Discharge: Stable Discharge Disposition: Disch w/ Home Health Serv Discharge Instructions DIET: Follow Instructions for: Heart Healthy Diet, Diabetic Diet Activities you can perform: Regular-No Restrictions Follow up Referrals: Neurology - [address] Iyer Neurosurgery - [address] Zarate Orthopedics - 1 Week PCP Follow-up - [address] Brett Morgan New Medications: Nifedipine ER 24 HR (Procardia XL) 30 Mg Tab 30 MG PO DAILY for blood pressure, #60 TAB 0 Refills take two tablets daily Aspirin (Aspirin Low Strength) 81 Mg Chew 81 MG CHEW DAILY for blood thinner, #30 EA Continued Medications: Atorvastatin (Atorvastatin) 20 Mg Tab 20 MG PO HS for Cholesterol Management, #30 TAB 0 Refills Glimepiride (Glimepiride) 1 Mg Tab 1 MG PO BIDAC for Blood Sugar Management, #30 TAB 0 Refills Take with breakfast or first main meal Levothyroxine (Synthroid) 100 Mcg Tab 100 MCG PO DAILY for Thyroid, #30 TAB 0 Refills Lorazepam (Lorazepam) 1 Mg Tab 1 MG PO BID PRN for ANXIETY, TAB 0 Refills Metformin (Metformin) 1,000 Mg Tab 1000 MG PO BIDPC for Blood Sugar Management, #60 TAB 0 Refills With meals Triamterene-Hydrochlorothiazide (Triamterene-Hydrochlorothiazide) 37.5-25 Mg Cap 1 CAP PO DAILY, #30 CAP 0 Refills Discontinued Medications: Amlodipine (Norvasc) 5 Mg Tab 5 MG PO DAILY for Blood Pressure Management, #30 TAB 0 Refills Leatha Sparks Jun 01, 2017 15:19
== END 2017-06-01 17:03 | disposition home health service (06) | DRG 65 ==
LOC: NEPE 09:25 → NEDA 10:56 → N05B 14:21
PROVIDERS: ADMIT Hospitalist; ATTEND Hospitalist
DX: I63.9 Cerebral infarction, unspecified (principal); M62.82 Rhabdomyolysis; E11.9 Type 2 diabetes mellitus without complications; E87.1 Hypo-osmolality and hyponatremia; R47.01 Aphasia; I47.1 Supraventricular tachycardia; E86.0 Dehydration; I10 Essential (primary) hypertension; E03.9 Hypothyroidism, unspecified; E78.5 Hyperlipidemia, unspecified; E87.6 Hypokalemia; M48.02 Spinal stenosis, cervical region; M75.101 Unspecified rotator cuff tear or rupture of right shoulder, not specified as traumatic; R29.6 Repeated falls; Z79.84 Long term (current) use of oral hypoglycemic drugs; R47.1 Dysarthria and anarthria; T14.8 Other injury of unspecified body region; W19.XXXA Unspecified fall, initial encounter; Y92.099 Unspecified place in other non-institutional residence as the place of occurrence of the external cause
CPT/HCPCS: 70450; 70544; 70551; 71010; 72141; 73060; 73221; 73560; 80048; 80053; 80061; 81001; 82550; 82552; 82607; 82948; 83036; 83735; 84132; 84484; 85025; 85610; 85730; 86592; 93005; 93225; 93226; 93306; 93880; 95819; J1815; J7030; P9612